=== PATIENT | female | born 1980 | race Caucasian/White ===

== ENCOUNTER 2017-04-20 08:59 | Emergency (ER) | payer MEDICAID ==
[2017-04-20] MEDS ORDERED: GOLYTELY 4,000ML ORAL.SOL PO ONE (15:30)
== END 2017-04-20 10:55 ==
LOC: ED 08:59
DX: K59.00 Constipation, unspecified (principal)
CPT/HCPCS: 99282

== ENCOUNTER 2017-05-10 02:06 | Emergency (ER) | payer MEDICAID ==
[~2017-05-10] VITALS: Ht 170.2 cm; Wt 82.2 kg
[2017-05-10 02:09] VITALS: BP 115/81
[2017-05-10 03:54] LABS: BLOOD UREA NITROGEN 5 mg/dL (7-18)
[2017-05-10] MEDS ORDERED: POTASSIUM CHLORIDE 20 MEQ TAB.ER.PRT ONE ×2 (04:21→04:29)
[2017-05-10] MEDS ORDERED: ONDANSETRON 2MG/ML, 2ML IVPush ONE (04:30)
[2017-05-10] MEDS ORDERED: SODIUM CHLORIDE 0.9% 1,000ML IVBOLUS ONE (04:30)
[2017-05-10] MEDS ORDERED: SODIUM CHLORIDE FLUSH 10ML SYR IVF ONE (04:30)
[2017-05-10] MEDS ORDERED: POTASSIUM CHLORIDE 20 MEQ TAB.ER.PRT PO ONE ×2 (04:30)
[2017-05-10] MEDS ORDERED: ONDANSETRON 2MG/ML, 2ML ONE (04:32)
== END 2017-05-10 05:21 | disposition home or self-care (01) ==
LOC: ED 03:18
DX: R30.0 Dysuria (principal); E87.6 Hypokalemia; E87.1 Hypo-osmolality and hyponatremia
CPT/HCPCS: 36415; 80048; 81001; 82040; 84703; 85025; 96361; 96374; 99284; J2405; J7030

== ENCOUNTER 2017-06-22 20:22 | Emergency (ER) | payer MEDICAID ==
[~2017-06-22] VITALS: Ht 170.2 cm; Wt 82.0 kg
[2017-06-22 21:01] LABS: HEMATOCRIT 38.1 % (34.6-47.8); HEMOGLOBIN 12.4 g/dL (11.7-16.4); WHITE BLOOD COUNT 10.5 x10^3/uL (3.4-10)
[2017-06-22 21:13] LABS: ASPARTATE AMINO TRANSFERASE 12 U/L (15-37); BLOOD UREA NITROGEN 9 mg/dL (7-18)
[2017-06-22 21:30] VITALS: BP 136/82
== END 2017-06-22 21:52 | disposition home or self-care (01) ==
LOC: ED 21:30
DX: R10.84 Generalized abdominal pain (principal); F17.200 Nicotine dependence, unspecified, uncomplicated
CPT/HCPCS: 36415; 74020; 80053; 83690; 84703; 85025; 99285

== ENCOUNTER 2017-08-21 09:56 | Emergency (ER) | payer MEDICAID ==
[~2017-08-21] VITALS: Ht 170.2 cm; Wt 80.1 kg
[2017-08-21] MEDS ORDERED: ACETAMINOPHEN 325 MG TABLET ONE (10:56)
[2017-08-21] MEDS ORDERED: ONDANSETRON 2MG/ML, 2ML ONE (10:57)
[2017-08-21] MEDS ORDERED: ACETAMINOPHEN 325 MG TABLET PO ONE (11:00)
[2017-08-21] MEDS ORDERED: ONDANSETRON 2MG/ML, 2ML IVPush ONE (11:00)
[2017-08-21] MEDS ORDERED: SODIUM CHLORIDE FLUSH 10ML SYR IVF ONE (11:00)
[2017-08-21] MEDS ORDERED: SODIUM CHLORIDE 0.9% 1,000ML IVBOLUS ONE (11:00)
[2017-08-21 11:14] LABS: HEMOGLOBIN 15.1 g/dL (11.7-16.4); WHITE BLOOD COUNT 12.5 x10^3/uL (3.4-10)
[2017-08-21 11:28] LABS: ASPARTATE AMINO TRANSFERASE 15 U/L (15-37); BLOOD UREA NITROGEN 7 mg/dL (7-18)
[2017-08-21 13:14] LABS: GLUCOSE, CSF 73 mg/dL (40-80)
[2017-08-21 13:29] VITALS: BP 114/78
== END 2017-08-21 14:00 | disposition home or self-care (01) ==
LOC: ED 11:23
DX: F51.02 Adjustment insomnia (principal); R51 Headache; G47.9 Sleep disorder, unspecified
CPT/HCPCS: 36415; 62270; 71010; 80053; 81003; 82140; 82945; 83605; 83690; 84157; 85025; 85610; 87070; 87205; 87252; 89051; 93005; 96361; 96374; 99285; J2405; J7030

== ENCOUNTER 2017-08-30 10:00 | Observation (INO) | payer MEDICAID ==
[~2017-08-30] VITALS: Ht 175.3 cm; Wt 75.0 kg
[2017-08-30] MEDS ORDERED: LORazepam 1MG TABLET PO ONE (10:30)
[2017-08-30 10:46] LABS: HEMATOCRIT 41.9 % (34.6-47.8); HEMOGLOBIN 13.9 g/dL (11.7-16.4); WHITE BLOOD COUNT 13.3 x10^3/uL (3.4-10)
[2017-08-30 10:54] LABS: ASPARTATE AMINO TRANSFERASE 14 U/L (15-37); BLOOD UREA NITROGEN 9 mg/dL (7-18)
[2017-08-30 10:55] LABS: DAU SCREEN DISCLAIMER
[2017-08-30 11:01] LABS: ACETAMINOPHEN < 2 mcg/mL (10-30)
[2017-08-30] MEDS ORDERED: NICOTINE 21 MG/24 HR PATCH.TD24 TD ONE (12:30)
[2017-08-30] MEDS ORDERED: ONDANSETRON ODT 4 MG PO PRN (12:30)
[2017-08-30] MEDS ORDERED: ACETAMINOPHEN 325 MG TABLET PO PRN (12:30)
[2017-08-30] MEDS ORDERED: DOCUSATE 100 MG CAPSULE PO PRN (12:30)
[2017-08-30] MEDS ORDERED: ENOXAPARIN 40 MG/0.4 ML ONE (13:43)
[2017-08-30] MEDS ORDERED: LORazepam 1MG TABLET ONE (13:43)
[2017-08-30] MEDS ORDERED: NICOTINE 21 MG/24 HR PATCH.TD24 ONE (13:43)
[2017-08-30] MEDS: ENOXAPARIN 40 MG/0.4 ML SQ SCH (14:25)
[2017-08-30 17:58] LABS: PATH.CAST-FLAG NOT PRESENT; SPERM-FLAG NOT PRESENT; SRC-FLAG NOT PRESENT; XTAL-FLAG NOT PRESENT; YLC-FLAG NOT PRESENT
[2017-08-30] MEDS: TEMAZEPAM 15 MG CAPSULE PO PRN (22:24)
[2017-08-30] MEDS: SODIUM CHLORIDE NASAL SPRAY 45ML BOTTLE NAS SCH (22:24)
[2017-08-31] MEDS ORDERED: LORazepam 0.5MG TABLET ONE (05:21)
[2017-08-31] MEDS: LORazepam 1MG TABLET PO PRN ×2 (05:30→12:08)
[2017-08-31 05:56] LABS: HEMATOCRIT 40.7 % (34.6-47.8); HEMOGLOBIN 13.4 g/dL (11.7-16.4); WHITE BLOOD COUNT 7.9 x10^3/uL (3.4-10)
[2017-08-31] MEDS: SODIUM CHLORIDE NASAL SPRAY 45ML BOTTLE NAS SCH ×2 (08:57→22:04)
[2017-08-31] MEDS ORDERED: LORazepam 1MG TABLET ONE (12:06)
[2017-08-31] MEDS ORDERED: ENOXAPARIN 40 MG/0.4 ML ONE (12:06)
[2017-08-31] MEDS: ENOXAPARIN 40 MG/0.4 ML SQ SCH (12:08)
[2017-08-31] MEDS: LURASIDONE 20 MG TABLET PO SCH (17:37)
[2017-08-31] MEDS ORDERED: NICOTINE 21 MG/24 HR PATCH.TD24 ONE (19:21)
[2017-08-31] MEDS: NICOTINE 21 MG/24 HR PATCH.TD24 TD SCH (19:26)
[2017-08-31] MEDS: TEMAZEPAM 15 MG CAPSULE PO PRN (22:39)
[2017-09-01 01:25] VITALS: BP 103/70
[2017-09-01] MEDS: LORazepam 1MG TABLET PO PRN ×4 (01:52→20:51)
[2017-09-01 07:58] VITALS: BP_SYST 92; BP_SYST 94; BP_DIAS 66; BP_DIAS 68
[2017-09-01] MEDS: LURASIDONE 20 MG TABLET PO SCH ×2 (08:06→16:39)
[2017-09-01] MEDS: SODIUM CHLORIDE NASAL SPRAY 45ML BOTTLE NAS SCH ×2 (09:00→10:08)
[2017-09-01 09:20] VITALS: BP 107/75
[2017-09-01] MEDS: LACTOBACILLUS CHEW TABLET PO SCH ×3 (10:09→20:28)
[2017-09-01] MEDS: ENOXAPARIN 40 MG/0.4 ML SQ SCH (13:06)
[2017-09-01] MEDS: NICOTINE 21 MG/24 HR PATCH.TD24 TD SCH (19:30)
[2017-09-01 19:52] VITALS: BP 96/65
[2017-09-02] MEDS: LORazepam 1MG TABLET PO PRN ×3 (00:08→16:10)
[2017-09-02] MEDS: LACTOBACILLUS CHEW TABLET PO SCH ×3 (05:23→16:10)
[2017-09-02 08:00] VITALS: BP 93/66
[2017-09-02] MEDS: LURASIDONE 20 MG TABLET PO SCH ×2 (08:25→17:12)
[2017-09-02] MEDS: SODIUM CHLORIDE NASAL SPRAY 45ML BOTTLE NAS SCH (08:25)
[2017-09-02] MEDS: ENOXAPARIN 40 MG/0.4 ML SQ SCH (13:12)
[2017-09-02] MEDS ORDERED: LURA20TA PO (18:34)
[2017-09-02] MEDS ORDERED: CLON-364 PO (18:34)
[2017-09-02] MEDS ORDERED: NICO-487 TD (18:34)
== END 2017-09-02 18:43 | disposition home or self-care (01) ==
LOC: ED 10:09 → EDIP 11:40 → 3E 09-01 01:22
PROVIDERS: ADMIT Internal Medicine; ATTEND Internal Medicine
DX: F31.81 Bipolar II disorder (principal); R45.851 Suicidal ideations; D72.829 Elevated white blood cell count, unspecified; D49.0 Neoplasm of unspecified behavior of digestive system; F17.210 Nicotine dependence, cigarettes, uncomplicated; G47.00 Insomnia, unspecified; F41.0 Panic disorder [episodic paroxysmal anxiety]; F29 Unspecified psychosis not due to a substance or known physiological condition; Z81.8 Family history of other mental and behavioral disorders; Z86.59 Personal history of other mental and behavioral disorders; Z91.5 Personal history of self-harm
CPT/HCPCS: 36415; 70210; 74000; 80053; 80307; 80329; 81001; 84703; 85025; 96372; 99285; G0378; J1650; G0479; G0480

== ENCOUNTER 2018-03-16 13:24 | Emergency (ER) | payer MEDICAID ==
[~2018-03-16] VITALS: Ht 170.2 cm; Wt 77.5 kg
[~2018-03-16 13:24] MED LIST: CLON-364 PO; LURA20TA PO; NICO-487 TD
[2018-03-16 13:35] VITALS: BP 116/73
[2018-03-16] MEDS ORDERED: DOXE50CA PO (14:05)
[2018-03-16 14:30] LABS: AMPHETAMINE SCREEN, URINE Negative (Negative); BARBITURATE SCREEN, URINE Negative (Negative); BENZODIAZEPINE SCREEN, URINE Negative (Negative); CANNABINOID SCREEN, URINE Negative (Negative); COCAINE SCREEN, URINE Negative (Negative); METHADONE SCREEN, URINE Negative (Negative); OPIATE SCREEN, URINE Negative (Negative)
== END 2018-03-16 16:35 | disposition home or self-care (01) ==
LOC: ED 15:22
DX: F32.9 Major depressive disorder, single episode, unspecified (principal); F41.1 Generalized anxiety disorder; F17.200 Nicotine dependence, unspecified, uncomplicated; Z79.899 Other long term (current) drug therapy
CPT/HCPCS: 80307; 99284

== ENCOUNTER 2018-10-12 05:41 | Emergency (ER) | payer MEDICAID ==
[~2018-10-12] VITALS: Ht 170.2 cm; Wt 100.0 kg
[~2018-10-12 05:41] MED LIST changes: -CLON-364 PO; +CLON0.5T11 PO; +DOXE50CA PO
[2018-10-12] MEDS ORDERED: PREN-1 PO (05:56)
[2018-10-12] MEDS ORDERED: ASPI-496 PO (05:56)
[2018-10-12] MEDS ORDERED: OTC ALLERGY MED (05:56)
[2018-10-12] MEDS ORDERED: HYDROmorphone 2 MG/ML, 1ML ONE ×2 (07:00→07:57)
[2018-10-12] MEDS: HYDROmorphone 1 MG/ML, 1ML IM PRN ×2 (07:02→07:59)
[2018-10-12] MEDS ORDERED: HYDROmorphone 1 MG/ML, 1ML IM PRN (08:00)
[2018-10-12 08:17] LABS: ALBUMIN 2.8 g/dL (3.4-5.0); ANION GAP 8 mmol/L (5-15); CALCIUM 8.7 mg/dL (8.5-10.1); CHLORIDE 108 mmol/L (98-107); CREATININE 0.66 mg/dL (0.55-1.02)
[2018-10-12 08:18] LABS: BASOPHILS # (AUTO) 0.03 x10^3/uL (0-0.1); BASOPHILS % (AUTO) 0 % (0-1); EOSINOPHILS # (AUTO) 0.01 x10^3/uL (0-0.4); EOSINOPHILS % (AUTO) 0 % (1-7); LYMPHOCYTES # (AUTO) 2.03 x10^3/uL (1-3.4); LYMPHOCYTES % (AUTO) 12 % (22-44); MD NO; MEAN CORPUSCULAR HEMOGLOBIN 28.7 pg (27.0-34.8); MEAN CORPUSCULAR HGB CONC 32.4 g/dL (32.4-35.8); MEAN CORPUSCULAR VOLUME 88.7 fL (80-100); MEAN PLATELET VOLUME 7.7 fL (7.4-10.4); MONOCYTES % (AUTO) 4 % (2-9); NEUTROPHILS % (AUTO) 84 % (42-75); PLATELET COUNT 411 x10^3/uL (130-400); RED BLOOD COUNT 3.73 x10^6/uL (3.82-5.3); RED CELL DISTRIBUTION WIDTH 13.1 % (9.6-15.2)
[2018-10-12 08:36] LABS: MICROSCOPIC NOT IND
[2018-10-12 08:40] LABS: CULTURE INDICATED? NO
[2018-10-12] MEDS ORDERED: OMNIPAQUE 350 MG/ML, 100ML BOTTLE ONE (10:48)
[2018-10-12 10:53] VITALS: BP 105/64
== END 2018-10-12 11:22 | disposition home or self-care (01) ==
LOC: ED 08:52
DX: O99.512 Diseases of the respiratory system complicating pregnancy, second trimester (principal); O99.332 Smoking (tobacco) complicating pregnancy, second trimester; J15.9 Unspecified bacterial pneumonia; D72.829 Elevated white blood cell count, unspecified; F17.200 Nicotine dependence, unspecified, uncomplicated; R07.9 Chest pain, unspecified; F41.1 Generalized anxiety disorder; F32.9 Major depressive disorder, single episode, unspecified; Z87.19 Personal history of other diseases of the digestive system; Z3A.24 24 weeks gestation of pregnancy
CPT/HCPCS: 36415; 71046; 71275; 80048; 81003; 82040; 85025; 85379; 96372; 99284; J1170; Q9967

== ENCOUNTER 2018-11-14 15:17 | Outpatient (CLI) | payer MEDICAID ==
[~2018-11-14] VITALS: Ht 170.2 cm; Wt 99.8 kg
[~2018-11-14 15:17] MED LIST changes: +ACET-76 PO; +ASPI-496 PO; +DIPH25CA61 PO; +OTC ALLERGY MED; +PREN-1 PO; +RANI150T23 PO
[2018-11-14 16:12] LABS: MICROSCOPIC NOT IND
== END 2018-11-14 17:45 | disposition home or self-care (01) ==
LOC: LDOP 15:17
PROVIDERS: ATTEND Obstetrics & Gynecology
DX: O26.893 Other specified pregnancy related conditions, third trimester (principal); R10.9 Unspecified abdominal pain; F17.210 Nicotine dependence, cigarettes, uncomplicated; Z3A.20 20 weeks gestation of pregnancy
CPT/HCPCS: 59025; 81003; 87086; 99201; G0463

== ENCOUNTER 2018-11-14 17:54 | Emergency (ER) | payer MEDICAID ==
[~2018-11-14] VITALS: Ht 170.2 cm; Wt 100.0 kg
[2018-11-14 19:16] VITALS: BP 125/72
--- NOTE | 2018-11-14 19:16 | NUR ---
PT HERE FOR LEFT SIDED PAIN. PT SEEN HERE 3 TIMES FOR SAME. PT 27 WEEKS . PT HAS NO OTHER COMPLAINTS. VSS. PT WANTS TO FIND OUT WHAT IS GOING ON. PA AT BEDSIDE
[2018-11-14 19:29] LABS: BASOPHILS # (AUTO) 0.01 x10^3/uL (0-0.1); BASOPHILS % (AUTO) 0 % (0-1); EOSINOPHILS # (AUTO) 0.09 x10^3/uL (0-0.4); EOSINOPHILS % (AUTO) 1 % (1-7); LYMPHOCYTES # (AUTO) 2.18 x10^3/uL (1-3.4); LYMPHOCYTES % (AUTO) 18 % (22-44); MD NO; MEAN CORPUSCULAR HEMOGLOBIN 28.9 pg (27.0-34.8); MEAN CORPUSCULAR HGB CONC 33.1 g/dL (32.4-35.8); MEAN CORPUSCULAR VOLUME 87.3 fL (80-100); MEAN PLATELET VOLUME 7.4 fL (7.4-10.4); MONOCYTES % (AUTO) 4 % (2-9); NEUTROPHILS # (AUTO) 9.62 x10^3/uL (1.8-6.8); NEUTROPHILS % (AUTO) 78 % (42-75); PLATELET COUNT 373 x10^3/uL (130-400); RED CELL DISTRIBUTION WIDTH 13.6 % (9.6-15.2)
--- NOTE | 2018-11-14 19:38 | NUR ---
REPORT TO RAFAL NOLAN
[2018-11-14 19:40] LABS: ALANINE AMINOTRANSFERASE 20 U/L (12-78); ALBUMIN 2.4 g/dL (3.4-5.0); ANION GAP 11 mmol/L (5-15); CALCIUM 7.9 mg/dL (8.5-10.1); CHLORIDE 106 mmol/L (98-107); CREATININE 0.63 mg/dL (0.55-1.02)
[2018-11-14 19:42] LABS: ALKALINE PHOSPHATASE 115 U/L (45-117); BILIRUBIN,TOTAL 0.2 mg/dL (0.2-1.0); TOTAL PROTEIN 6.4 g/dL (6.4-8.2)
[2018-11-14 21:12] LABS: MICROSCOPIC INDICATED
[2018-11-14 21:23] LABS: CULTURE INDICATED? YES
== END 2018-11-14 21:42 | disposition home or self-care (01) ==
LOC: ED 19:42
DX: O26.893 Other specified pregnancy related conditions, third trimester (principal); Z3A.29 29 weeks gestation of pregnancy; G89.29 Other chronic pain; R10.9 Unspecified abdominal pain; R11.0 Nausea
CPT/HCPCS: 36415; 71046; 80053; 81001; 85025; 87086; 93005; 99284

== ENCOUNTER 2018-11-27 19:59 | Outpatient (CLI) | payer MEDICAID ==
[~2018-11-27] VITALS: Ht 170.2 cm; Wt 112.5 kg
[2018-11-27 20:35] LABS: MICROSCOPIC NOT IND
[2018-11-27 20:47] LABS: AMPHETAMINE SCREEN, URINE Negative (Negative); BARBITURATE SCREEN, URINE Negative (Negative); BENZODIAZEPINE SCREEN, URINE Negative (Negative); CANNABINOID SCREEN, URINE Positive (Negative); COCAINE SCREEN, URINE Negative (Negative); OPIATE SCREEN, URINE Negative (Negative)
[2018-11-27 20:48] LABS: METHADONE SCREEN, URINE Negative (Negative)
[2018-11-27 21:52] VITALS: BP 117/77
[2018-11-27 22:01] LABS: BASOPHILS # (AUTO) 0.05 x10^3/uL (0-0.1); BASOPHILS % (AUTO) 0 % (0-1); EOSINOPHILS # (AUTO) 0.45 x10^3/uL (0-0.4); EOSINOPHILS % (AUTO) 3 % (1-7); LYMPHOCYTES % (AUTO) 14 % (22-44); MD NO; MEAN CORPUSCULAR HEMOGLOBIN 28.6 pg (27.0-34.8); MEAN CORPUSCULAR HGB CONC 32.9 g/dL (32.4-35.8); MEAN CORPUSCULAR VOLUME 86.8 fL (80-100); MEAN PLATELET VOLUME 7.7 fL (7.4-10.4); MONOCYTES % (AUTO) 4 % (2-9); NEUTROPHILS # (AUTO) 12.67 x10^3/uL (1.8-6.8); NEUTROPHILS % (AUTO) 78 % (42-75); PLATELET COUNT 412 x10^3/uL (130-400); RED BLOOD COUNT 3.68 x10^6/uL (3.82-5.3)
[2018-11-27 22:11] LABS: ALBUMIN 2.4 g/dL (3.4-5.0); ANION GAP 8 mmol/L (5-15); CALCIUM 7.8 mg/dL (8.5-10.1); CHLORIDE 108 mmol/L (98-107)
[2018-11-27 22:14] LABS: ALANINE AMINOTRANSFERASE 21 U/L (12-78); ALKALINE PHOSPHATASE 126 U/L (45-117); BILIRUBIN,TOTAL 0.6 mg/dL (0.2-1.0); CREATININE 0.65 mg/dL (0.55-1.02); TOTAL PROTEIN 6.5 g/dL (6.4-8.2)
[2018-11-27] MEDS ORDERED: MAALOX/HYOSCYAMINE/LIDOCAINE 45 ML BTL PO ONE (23:00)
== END 2018-11-27 23:50 | disposition home or self-care (01) ==
LOC: LDOP 19:59
PROVIDERS: ATTEND Obstetrics & Gynecology
DX: O26.893 Other specified pregnancy related conditions, third trimester (principal); Z3A.30 30 weeks gestation of pregnancy; R10.9 Unspecified abdominal pain
CPT/HCPCS: 36415; 59025; 76700; 80053; 80307; 81003; 85025; 87086; 99211; G0463

== ENCOUNTER 2018-12-02 06:41 | Observation (INO) | payer MEDICAID ==
[~2018-12-02] VITALS: Ht 170.2 cm; Wt 102.0 kg
--- NOTE | 2018-12-02 07:03 | NUR ---
Patient up to bathroom, UA collected and sent to lab, elevator service technician Ishan has collected/bagged/labeled patient's belongings.
--- NOTE | 2018-12-02 07:10 | NUR ---
MD Stafford at bedside now for assessment, water and blankets provided, sitter outside room, POC discussed with .
[2018-12-02 07:36] LABS: BASOPHILS # (AUTO) 0.11 x10^3/uL (0-0.1); BASOPHILS % (AUTO) 1 % (0-1); EOSINOPHILS # (AUTO) 0.06 x10^3/uL (0-0.4); EOSINOPHILS % (AUTO) 0 % (1-7); LYMPHOCYTES # (AUTO) 1.86 x10^3/uL (1-3.4); LYMPHOCYTES % (AUTO) 11 % (22-44); MD NO; MEAN CORPUSCULAR HGB CONC 32.8 g/dL (32.4-35.8); MEAN CORPUSCULAR VOLUME 85.3 fL (80-100); MEAN PLATELET VOLUME 7.5 fL (7.4-10.4); MONOCYTES # (AUTO) 0.71 x10^3/uL (0.2-0.8); MONOCYTES % (AUTO) 4 % (2-9); NEUTROPHILS # (AUTO) 13.57 x10^3/uL (1.8-6.8); NEUTROPHILS % (AUTO) 83 % (42-75); PLATELET COUNT 412 x10^3/uL (130-400); RED BLOOD COUNT 3.75 x10^6/uL (3.82-5.3); RED CELL DISTRIBUTION WIDTH 14.1 % (9.6-15.2)
[2018-12-02 07:45] LABS: ALANINE AMINOTRANSFERASE 20 U/L (12-78); ALBUMIN 2.4 g/dL (3.4-5.0); ANION GAP 8 mmol/L (5-15); CALCIUM 8.1 mg/dL (8.5-10.1); CHLORIDE 109 mmol/L (98-107); CREATININE 0.53 mg/dL (0.55-1.02); SALICYLATE LEVEL 1.9 mg/dL (2.8-20.0)
[2018-12-02 07:48] LABS: ALKALINE PHOSPHATASE 131 U/L (45-117); BILIRUBIN,TOTAL 0.2 mg/dL (0.2-1.0); TOTAL PROTEIN 6.5 g/dL (6.4-8.2)
[2018-12-02 07:49] LABS: MICROSCOPIC NOT IND
[2018-12-02 07:52] LABS: CULTURE INDICATED? NO
[2018-12-02 07:54] LABS: ACETAMINOPHEN < 2 mcg/mL (10-30)
[2018-12-02 08:02] LABS: AMPHETAMINE SCREEN, URINE Negative (Negative); BARBITURATE SCREEN, URINE Negative (Negative); BENZODIAZEPINE SCREEN, URINE Negative (Negative); CANNABINOID SCREEN, URINE Negative (Negative); COCAINE SCREEN, URINE Negative (Negative); METHADONE SCREEN, URINE Negative (Negative); OPIATE SCREEN, URINE Negative (Negative)
--- NOTE | 2018-12-02 08:35 | NUR ---
patient given atarax, she has requested to take just 25 mg, this RN will recheck soon to offer 2nd 25 mg tablet
--- NOTE | 2018-12-02 09:17 | NUR ---
SOC MD Campbell has called and updates provided by this RN. Tele psych unit in room, shutters lowered, safety maintained, sitter remains present outside room.
--- NOTE | 2018-12-02 09:51 | NUR ---
MD Campbell has called to update that patient should be on a legal hold and can have Ativan PRN per his reccomendation. Following the Telepsych consult patient was sitting up in bed gagging but not seen to vomit by this RN. Patient has been given multiple cups of water, is reporting "severe dehydration for months" MD Stafford updated now.
[2018-12-02] MEDS ORDERED: ONDANSETRON ODT 4 MG ONE (10:08)
--- NOTE | 2018-12-02 10:29 | NUR ---
telephone operator receptionist note: L&D called to perform heart tones per order.
[2018-12-02] MEDS ORDERED: ONDANSETRON ODT 4 MG PO ONE (10:30)
--- NOTE | 2018-12-02 10:44 | NUR ---
patient remains safe in room, sitter present with line of sight, zofran administered following verbal order from MD Stafford, patient will be given more PO fluids when nausea has subsided.
--- NOTE | 2018-12-02 10:44 | NUR ---
FHTS BY DOPPLER 132
[2018-12-02] MEDS ORDERED: TEMPLATE NON-FORMULARY MED. (Ranitidine Hcl** (Zantac**) 150 MG) HOMEMEDPO PRN (12:00)
[2018-12-02] MEDS: ONDANSETRON ODT 4 MG PO PRN (13:20)
[2018-12-02] MEDS: ACETAMINOPHEN 325 MG TABLET PO PRN (18:11)
[2018-12-02 19:59] VITALS: BP 121/81
[2018-12-02] MEDS: DIPHENHYDRAMINE 25 MG CAPSULE PO PRN (20:32)
[2018-12-02] MEDS: RANITIDINE 15 MG/ML ORAL SOL PO PRN (22:19)
[2018-12-03] MEDS: ONDANSETRON ODT 4 MG PO PRN (01:03)
[2018-12-03 05:22] LABS: BASOPHILS # (AUTO) 0.03 x10^3/uL (0-0.1); BASOPHILS % (AUTO) 0 % (0-1); EOSINOPHILS # (AUTO) 0.07 x10^3/uL (0-0.4); EOSINOPHILS % (AUTO) 0 % (1-7); LYMPHOCYTES # (AUTO) 2.19 x10^3/uL (1-3.4); LYMPHOCYTES % (AUTO) 14 % (22-44); MD NO; MEAN CORPUSCULAR HEMOGLOBIN 28.3 pg (27.0-34.8); MEAN CORPUSCULAR HGB CONC 32.5 g/dL (32.4-35.8); MEAN CORPUSCULAR VOLUME 86.9 fL (80-100); MEAN PLATELET VOLUME 7.7 fL (7.4-10.4); MONOCYTES # (AUTO) 0.82 x10^3/uL (0.2-0.8); MONOCYTES % (AUTO) 5 % (2-9); NEUTROPHILS # (AUTO) 12.97 x10^3/uL (1.8-6.8); NEUTROPHILS % (AUTO) 81 % (42-75); PLATELET COUNT 386 x10^3/uL (130-400); RED BLOOD COUNT 3.72 x10^6/uL (3.82-5.3); RED CELL DISTRIBUTION WIDTH 14.1 % (9.6-15.2)
[2018-12-03] MEDS: SUCRALFATE 1 GM TABLET PO SCH ×4 (07:54→20:38)
[2018-12-03] MEDS: PRENATAL VIT/IRON/FA 1 EACH TABLET PO SCH (07:54)
[2018-12-03 08:00] VITALS: BP 100/69
[2018-12-03 13:01] VITALS: BP 131/80
[2018-12-03] MEDS: RANITIDINE 15 MG/ML ORAL SOL PO PRN (15:17)
[2018-12-03] MEDS: DIPHENHYDRAMINE 25 MG CAPSULE PO PRN (20:30)
[2018-12-03 20:38] VITALS: BP 107/64
[2018-12-04 01:49] VITALS: BP 128/91
[2018-12-04] MEDS: RANITIDINE 15 MG/ML ORAL SOL PO PRN (01:49)
[2018-12-04] MEDS: ACETAMINOPHEN 325 MG TABLET PO PRN (03:02)
[2018-12-04 08:21] VITALS: BP 108/71
[2018-12-04] MEDS: PRENATAL VIT/IRON/FA 1 EACH TABLET PO SCH (08:47)
[2018-12-04] MEDS: SUCRALFATE 1 GM TABLET PO SCH ×2 (08:47→09:00)
== END 2018-12-04 14:55 ==
LOC: ED 06:46 → EDIP 10:19 → 2N 12:25
PROVIDERS: ADMIT Internal Medicine; ATTEND Internal Medicine
DX: O99.343 Other mental disorders complicating pregnancy, third trimester (principal); R45.851 Suicidal ideations; F32.9 Major depressive disorder, single episode, unspecified; F41.0 Panic disorder [episodic paroxysmal anxiety]; O99.323 Drug use complicating pregnancy, third trimester; F12.90 Cannabis use, unspecified, uncomplicated; O99.013 Anemia complicating pregnancy, third trimester; O26.893 Other specified pregnancy related conditions, third trimester; D72.829 Elevated white blood cell count, unspecified; E44.1 Mild protein-calorie malnutrition; O99.333 Smoking (tobacco) complicating pregnancy, third trimester; O25.13 Malnutrition in pregnancy, third trimester; Z3A.31 31 weeks gestation of pregnancy
CPT/HCPCS: 36415; 59025; 71045; 80053; 80307; 80329; 81003; 82731; 84112; 84443; 85025; 93005; 99284; G0378; Q0162; Q0163; Q0177; G0480

== ENCOUNTER 2018-12-04 13:57 | Inpatient (IN) | payer MEDICAID ==
[~2018-12-04] VITALS: Ht 170.2 cm; Wt 102.4 kg
[2018-12-04] MEDS ORDERED: POLYETHYLENE GLYCOL 17 GM PACKET PO PRN (15:30)
[2018-12-04] MEDS ORDERED: PLEASE ENTER HEIGHT AND WEIGHT MC SCH (15:30)
[2018-12-04] MEDS ORDERED: DOCUSATE 100 MG CAPSULE PO PRN (15:30)
[2018-12-04 16:14] VITALS: BP 115/73
[2018-12-04 20:26] VITALS: BP 100/55
[2018-12-04] MEDS ORDERED: ACETAMINOPHEN 325 MG TABLET ONE (20:39)
[2018-12-04] MEDS: ACETAMINOPHEN 325 MG TABLET PO PRN (20:43)
[2018-12-04] MEDS: ALUMINUM/MAG/SIMETHICONE 30 ML UDC PO PRN (22:04)
[2018-12-05 06:18] LABS: BASOPHILS # (AUTO) 0.03 x10^3/uL (0-0.1); BASOPHILS % (AUTO) 0 % (0-1); EOSINOPHILS # (AUTO) 0.09 x10^3/uL (0-0.4); EOSINOPHILS % (AUTO) 1 % (1-7); LYMPHOCYTES # (AUTO) 1.98 x10^3/uL (1-3.4); LYMPHOCYTES % (AUTO) 18 % (22-44); MD NO; MEAN CORPUSCULAR HEMOGLOBIN 27.9 pg (27.0-34.8); MEAN CORPUSCULAR HGB CONC 32.6 g/dL (32.4-35.8); MEAN CORPUSCULAR VOLUME 85.7 fL (80-100); MEAN PLATELET VOLUME 7.8 fL (7.4-10.4); MONOCYTES # (AUTO) 0.61 x10^3/uL (0.2-0.8); MONOCYTES % (AUTO) 6 % (2-9); NEUTROPHILS % (AUTO) 75 % (42-75); PLATELET COUNT 328 x10^3/uL (130-400); RED BLOOD COUNT 3.72 x10^6/uL (3.82-5.3); RED CELL DISTRIBUTION WIDTH 14.1 % (9.6-15.2)
[2018-12-05 06:24] LABS: ANION GAP 9 mmol/L (5-15); CALCIUM 8.3 mg/dL (8.5-10.1); CHLORIDE 107 mmol/L (98-107)
[2018-12-05 06:43] LABS: CHOL/HDL RATIO 3.2; CHOLESTEROL, TOTAL 172 mg/dL (140-239); CREATININE 0.54 mg/dL (0.55-1.02); FREE T4 (FREE THYROXINE) 1.06 ng/dL (0.76-1.46); HDL CHOL % 31 % (28-40); HDL CHOLESTEROL (DIRECT) 54 mg/dL (40-60); LDL CHOLESTEROL,CALCULATED 86 mg/dL (54-169); LDL/HDL RATIO 1.6 (0.5-3.0); TRIGLYCERIDES 160 mg/dL (50-200); VLDL CHOLESTEROL 32 mg/dL (0-25)
[2018-12-05 06:44] LABS: FOLATE LEVEL > 20.0 ng/mL (3.1-17.5)
[2018-12-05 07:51] VITALS: BP 106/72
[2018-12-05] MEDS: ALUMINUM/MAG/SIMETHICONE 30 ML UDC PO PRN (12:53)
[2018-12-05 14:55] LABS: MICROSCOPIC NOT IND
[2018-12-05 14:57] LABS: CULTURE INDICATED? NO
[2018-12-05] MEDS ORDERED: PRENATAL VIT/IRON/FA 1 EACH TABLET PO ONE (15:06)
[2018-12-05] MEDS: DIPHENHYDRAMINE 25 MG CAPSULE PO PRN (19:59)
[2018-12-05] MEDS: ACETAMINOPHEN 325 MG TABLET PO PRN (19:59)
[2018-12-05 20:00] VITALS: BP 121/84
[2018-12-06] MEDS: DIPHENHYDRAMINE 25 MG CAPSULE PO PRN ×3 (01:16→20:44)
[2018-12-06 08:10] VITALS: BP 108/74
[2018-12-06] MEDS: ACETAMINOPHEN 325 MG TABLET PO PRN ×2 (09:14→20:07)
[2018-12-06] MEDS: ALUMINUM/MAG/SIMETHICONE 30 ML UDC PO PRN ×2 (13:03→22:40)
[2018-12-06 19:55] VITALS: BP 128/90
[2018-12-06 23:06] VITALS: BP 128/86
[2018-12-07] MEDS: ACETAMINOPHEN 325 MG TABLET PO PRN ×4 (02:19→16:14)
[2018-12-07 07:58] VITALS: BP 128/85
[2018-12-07 19:48] VITALS: BP 120/82
[2018-12-07] MEDS: DIPHENHYDRAMINE 25 MG CAPSULE PO PRN (20:02)
[2018-12-07] MEDS: ALUMINUM/MAG/SIMETHICONE 30 ML UDC PO PRN (22:12)
[2018-12-08 08:00] VITALS: BP 96/66
[2018-12-08] MEDS ORDERED: PRENATAL VIT/IRON/FA 1 EACH TABLET PO SCH (09:00)
[2018-12-08] MEDS: SERTRALINE 50MG TABLET PO SCH ×2 (09:00→09:02)
== END 2018-12-08 09:58 | disposition home or self-care (01) | DRG 832 ==
LOC: 3E 14:46
PROVIDERS: ADMIT Psychiatry & Neurology Psychosomatic Medicine; ATTEND Psychiatry & Neurology Psychosomatic Medicine
DX: O99.343 Other mental disorders complicating pregnancy, third trimester (principal); E44.1 Mild protein-calorie malnutrition; O99.113 Other diseases of the blood and blood-forming organs and certain disorders involving the immune mechanism complicating pregnancy, third trimester; F50.2 Bulimia nervosa; K22.70 Barrett's esophagus without dysplasia; O25.13 Malnutrition in pregnancy, third trimester; O99.013 Anemia complicating pregnancy, third trimester; O26.893 Other specified pregnancy related conditions, third trimester; K21.9 Gastro-esophageal reflux disease without esophagitis; O99.333 Smoking (tobacco) complicating pregnancy, third trimester; F99 Mental disorder, not otherwise specified; O99.613 Diseases of the digestive system complicating pregnancy, third trimester; Z3A.32 32 weeks gestation of pregnancy; Z86.59 Personal history of other mental and behavioral disorders; Z91.5 Personal history of self-harm; Z68.35 Body mass index [BMI] 35.0-35.9, adult
CPT/HCPCS: 36415; 80048; 80061; 81003; 82746; 84439; 84443; 85025; 86592; Q0163; Q0177

== ENCOUNTER 2018-12-20 08:26 | Outpatient (CLI) | payer MEDICAID ==
[~2018-12-20] VITALS: Ht 170.2 cm; Wt 104.5 kg
[~2018-12-20 08:26] MED LIST changes: +NITR100C56 PO; +ONDA4TAB7 PO
[2018-12-20 09:15] LABS: MICROSCOPIC NOT IND
[2018-12-20] MEDS ORDERED: ONDANSETRON ODT 8 MG ONE (09:24)
[2018-12-20 09:26] LABS: AMPHETAMINE SCREEN, URINE Negative (Negative); BARBITURATE SCREEN, URINE Negative (Negative); BENZODIAZEPINE SCREEN, URINE Negative (Negative); CANNABINOID SCREEN, URINE Negative (Negative); COCAINE SCREEN, URINE Negative (Negative); METHADONE SCREEN, URINE Negative (Negative); OPIATE SCREEN, URINE Negative (Negative)
[2018-12-20] MEDS ORDERED: ONDANSETRON ODT 8 MG PO ONE (09:30)
[2018-12-20 09:37] VITALS: BP 118/75
[2018-12-20] MEDS ORDERED: PLEASE ENTER HEIGHT AND WEIGHT MC SCH (10:00)
== END 2018-12-20 10:40 | disposition home or self-care (01) ==
LOC: LDOP 08:26
PROVIDERS: ATTEND Obstetrics & Gynecology
DX: O21.2 Late vomiting of pregnancy (principal); Z3A.34 34 weeks gestation of pregnancy
CPT/HCPCS: 59025; 80307; 81003; 87086; 99211; Q0162; G0463

== ENCOUNTER 2018-12-29 13:07 | Outpatient (CLI) | payer MEDICAID ==
[~2018-12-29] VITALS: Ht 170.2 cm; Wt 109.5 kg
[2018-12-29 13:10] VITALS: BP 107/65
[2018-12-29 13:37] LABS: MICROSCOPIC NOT IND
[2018-12-29 13:41] LABS: CULTURE INDICATED? NO
[2018-12-29 13:48] LABS: AMPHETAMINE SCREEN, URINE Negative (Negative); BARBITURATE SCREEN, URINE Negative (Negative); BENZODIAZEPINE SCREEN, URINE Negative (Negative); CANNABINOID SCREEN, URINE Negative (Negative); COCAINE SCREEN, URINE Negative (Negative); METHADONE SCREEN, URINE Negative (Negative); OPIATE SCREEN, URINE Negative (Negative)
== END 2018-12-29 15:14 | disposition home or self-care (01) ==
LOC: LDOP 13:07
PROVIDERS: ATTEND Obstetrics & Gynecology
DX: O26.893 Other specified pregnancy related conditions, third trimester (principal); R10.9 Unspecified abdominal pain; Z3A.35 35 weeks gestation of pregnancy
CPT/HCPCS: 59025; 80307; 81003; 99211; G0463

== ENCOUNTER 2018-12-30 17:35 | Emergency (ER) | payer MEDICAID ==
[2018-12-30 17:47] VITALS: BP 118/79
--- NOTE | 2018-12-30 17:49 | NUR ---
PT EDUCATED REGARDING NEEDING TO GO TO L&D FIRST. PT WAS WALKING OUT OF TRIAGE THIS RN EXPLAINED THE SITUATION. PT STATES "I DON'T WANT TO GO THERE. MY BABY IS FINE. MOVING AND THE HEART IS FINE." PT CONTINUES TO WALK OUT OF TRIAGE AND ER.
== END 2018-12-30 17:51 | disposition left against medical advice (07) ==
LOC: ED 17:45
DX: Z53.21 Procedure and treatment not carried out due to patient leaving prior to being seen by health care provider (principal)

== ENCOUNTER 2019-01-08 15:04 | Observation (INO) | payer MEDICAID ==
[~2019-01-08] VITALS: Ht 170.2 cm; Wt 108.1 kg
[2019-01-08 15:10] VITALS: BP 111/78
[2019-01-08] MEDS ORDERED: MAALOX/HYOSCYAMINE/LIDOCAINE 45 ML BTL PO ONE (15:30)
[2019-01-08 15:48] LABS: AMPHETAMINE SCREEN, URINE Negative (Negative); BARBITURATE SCREEN, URINE Negative (Negative); BENZODIAZEPINE SCREEN, URINE Negative (Negative); CANNABINOID SCREEN, URINE Negative (Negative); COCAINE SCREEN, URINE Negative (Negative); METHADONE SCREEN, URINE Negative (Negative); OPIATE SCREEN, URINE Negative (Negative)
[2019-01-08] MEDS ORDERED: LACTATED RINGERS 1,000 ML IV SCH (16:00)
[2019-01-08] MEDS ORDERED: D5%-LACTATED RINGERS 1,000 ML IV SCH (16:00)
[2019-01-08] MEDS ORDERED: NYSTATIN TOPICAL POWDER 15GM TP PRN (16:00)
== END 2019-01-08 16:50 | disposition home or self-care (01) ==
LOC: LDOP 15:04 → LDIP 15:39
PROVIDERS: ADMIT Obstetrics & Gynecology; ATTEND Obstetrics & Gynecology
DX: O36.8130 Decreased fetal movements, third trimester, not applicable or unspecified (principal); O26.893 Other specified pregnancy related conditions, third trimester; O09.523 Supervision of elderly multigravida, third trimester; R42 Dizziness and giddiness; R06.02 Shortness of breath; Z3A.36 36 weeks gestation of pregnancy; Z87.891 Personal history of nicotine dependence; Z79.899 Other long term (current) drug therapy
CPT/HCPCS: 59025; 80307; 96360; G0378; J7121; 99211; G0463

== ENCOUNTER 2019-01-12 09:35 | Outpatient (CLI) | payer MEDICAID ==
[~2019-01-12] VITALS: Ht 170.2 cm; Wt 108.1 kg
[2019-01-12 10:30] VITALS: BP 121/69
[2019-01-12 10:40] LABS: MICROSCOPIC NOT IND
[2019-01-12 11:52] LABS: AMPHETAMINE SCREEN, URINE Negative (Negative); BARBITURATE SCREEN, URINE Negative (Negative); BENZODIAZEPINE SCREEN, URINE Negative (Negative); CANNABINOID SCREEN, URINE Negative (Negative); COCAINE SCREEN, URINE Negative (Negative); METHADONE SCREEN, URINE Negative (Negative); OPIATE SCREEN, URINE Negative (Negative)
== END 2019-01-12 10:51 | disposition home or self-care (01) ==
LOC: LDOP 09:35
PROVIDERS: ATTEND Obstetrics & Gynecology
DX: O36.8130 Decreased fetal movements, third trimester, not applicable or unspecified (principal); O21.2 Late vomiting of pregnancy; O26.893 Other specified pregnancy related conditions, third trimester; M54.5 Low back pain; Z3A.37 37 weeks gestation of pregnancy
CPT/HCPCS: 59025; 80307; 81003; 99211; G0463

== ENCOUNTER 2019-01-15 09:13 | Emergency (ER) | payer MEDICAID ==
[~2019-01-15] VITALS: Ht 170.2 cm; Wt 108.0 kg
--- NOTE | 2019-01-15 10:04 | NUR ---
P TO ED FOR SOB AND PÉREZ SINCE LAST NIGHT WITH INCREASING ABD PAIN. 37/5 . WILL NOTIFY L&D. CONNECTED TO MONITORS. TACHY, ALL OTHER VSS. PA TO BEDSIDE FOR ASSESSMENT. AWAITING ORDERS.
--- NOTE | 2019-01-15 10:29 | NUR ---
dr hernandez spoke with dr carr conductor sleeping car for dr palma
--- NOTE | 2019-01-15 10:41 | NUR ---
MD ASSESSMENT COMPLETE. IV ESTABLISHED. PT TO CT.
[2019-01-15 10:54] LABS: BASOPHILS # (AUTO) 0.13 x10^3/uL (0-0.1); BASOPHILS % (AUTO) 1 % (0-1); EOSINOPHILS # (AUTO) 0.16 x10^3/uL (0-0.4); EOSINOPHILS % (AUTO) 1 % (1-7); LYMPHOCYTES # (AUTO) 1.69 x10^3/uL (1-3.4); LYMPHOCYTES % (AUTO) 11 % (22-44); MD NO; MEAN CORPUSCULAR HEMOGLOBIN 27.8 pg (27.0-34.8); MEAN CORPUSCULAR HGB CONC 32.9 g/dL (32.4-35.8); MEAN CORPUSCULAR VOLUME 84.3 fL (80-100); MEAN PLATELET VOLUME 7.9 fL (7.4-10.4); MONOCYTES # (AUTO) 0.78 x10^3/uL (0.2-0.8); MONOCYTES % (AUTO) 5 % (2-9); NEUTROPHILS % (AUTO) 82 % (42-75); PLATELET COUNT 352 x10^3/uL (130-400); RED BLOOD COUNT 3.78 x10^6/uL (3.82-5.3); RED CELL DISTRIBUTION WIDTH 15.6 % (9.6-15.2)
[2019-01-15] MEDS ORDERED: OMNIPAQUE 350 MG/ML, 100ML BOTTLE ONE (10:59)
[2019-01-15 11:04] LABS: ALBUMIN 2.4 g/dL (3.4-5.0); ANION GAP 8 mmol/L (5-15); CALCIUM 8.3 mg/dL (8.5-10.1); CHLORIDE 111 mmol/L (98-107); CREATININE 0.61 mg/dL (0.55-1.02)
[2019-01-15 11:06] LABS: TROPONIN I < 0.015 ng/mL (0.000-0.045)
--- NOTE | 2019-01-15 11:22 | NUR ---
pt back from ct. awaiting results.
[2019-01-15 11:29] VITALS: BP 122/71
--- NOTE | 2019-01-15 11:49 | NUR ---
dr bertrand spoke with dr carr
--- NOTE | 2019-01-15 12:07 | NUR ---
report to l&d. pt ready for transport.
== END 2019-01-15 12:10 | disposition home or self-care (01) ==
LOC: ED 11:39 → UNDOADMOB 11:42 → INTOOBSV 11:42 → EDIP 11:42 → ED 12:10
DX: R06.00 Dyspnea, unspecified (principal)
CPT/HCPCS: 36415; 71275; 80048; 82040; 83880; 84484; 85025; 93005; 99284; Q9967

== ENCOUNTER 2019-01-15 13:11 | Outpatient (CLI) | payer MEDICAID ==
[~2019-01-15] VITALS: Ht 170.2 cm; Wt 114.5 kg
[2019-01-15 13:31] LABS: MICROSCOPIC INDICATED
[2019-01-15 13:49] LABS: AMPHETAMINE SCREEN, URINE Negative (Negative); BARBITURATE SCREEN, URINE Negative (Negative); BENZODIAZEPINE SCREEN, URINE Negative (Negative); CANNABINOID SCREEN, URINE Negative (Negative); COCAINE SCREEN, URINE Negative (Negative); METHADONE SCREEN, URINE Negative (Negative); OPIATE SCREEN, URINE Negative (Negative)
== END 2019-01-15 14:41 | disposition home or self-care (01) ==
LOC: LDOP 13:11
PROVIDERS: ATTEND Obstetrics & Gynecology
DX: O26.893 Other specified pregnancy related conditions, third trimester (principal); R10.9 Unspecified abdominal pain; Z3A.37 37 weeks gestation of pregnancy
CPT/HCPCS: 59025; 80307; 81001; 87086; 99211; G0463

== ENCOUNTER 2019-01-19 16:07 | Outpatient (CLI) | payer MEDICAID ==
[~2019-01-19] VITALS: Ht 170.2 cm; Wt 109.1 kg
[2019-01-19 17:10] LABS: MICROSCOPIC NOT IND
[2019-01-19 17:21] LABS: AMPHETAMINE SCREEN, URINE Negative (Negative); BARBITURATE SCREEN, URINE Negative (Negative); BENZODIAZEPINE SCREEN, URINE Negative (Negative); CANNABINOID SCREEN, URINE Negative (Negative); COCAINE SCREEN, URINE Negative (Negative); METHADONE SCREEN, URINE Negative (Negative); OPIATE SCREEN, URINE Negative (Negative)
[2019-01-19 17:49] VITALS: BP 113/60
== END 2019-01-19 18:02 | disposition left against medical advice (07) ==
LOC: LDOP 16:07
PROVIDERS: ATTEND Obstetrics & Gynecology
DX: O23.43 Unspecified infection of urinary tract in pregnancy, third trimester (principal); Z3A.38 38 weeks gestation of pregnancy
CPT/HCPCS: 59025; 80307; 81003; 99211; G0463

== ENCOUNTER 2019-01-23 14:07 | Inpatient (IN) | payer MEDICAID ==
[~2019-01-23] VITALS: Ht 170.2 cm; Wt 110.0 kg
[2019-01-24] MEDS ORDERED: METOCLOPRAMIDE 5 MG/ML, 2ML IV ONE (10:00)
[2019-01-24] MEDS ORDERED: LACTATED RINGERS 1,000 ML IVBOLUS ONE (10:00)
[2019-01-24] MEDS ORDERED: LACTATED RINGERS 1,000 ML IV SCH (10:00)
[2019-01-24] MEDS ORDERED: SODIUM CITRATE/CITRIC ACID 30 ML UDC PO ONE (10:00)
[2019-01-24 10:26] LABS: AMPHETAMINE SCREEN, URINE Negative (Negative); BARBITURATE SCREEN, URINE Negative (Negative); BENZODIAZEPINE SCREEN, URINE Negative (Negative); CANNABINOID SCREEN, URINE Negative (Negative); COCAINE SCREEN, URINE Negative (Negative); METHADONE SCREEN, URINE Negative (Negative); OPIATE SCREEN, URINE Negative (Negative)
[2019-01-24 10:29] VITALS: BP 131/72
[2019-01-24 10:33] LABS: BASOPHILS # (AUTO) 0.03 x10^3/uL (0-0.1); BASOPHILS % (AUTO) 0 % (0-1); EOSINOPHILS # (AUTO) 0.06 x10^3/uL (0-0.4); EOSINOPHILS % (AUTO) 0 % (1-7); LYMPHOCYTES # (AUTO) 1.71 x10^3/uL (1-3.4); LYMPHOCYTES % (AUTO) 11 % (22-44); MD NO; MEAN CORPUSCULAR HEMOGLOBIN 26.7 pg (27.0-34.8); MEAN CORPUSCULAR HGB CONC 31.6 g/dL (32.4-35.8); MEAN CORPUSCULAR VOLUME 84.3 fL (80-100); MEAN PLATELET VOLUME 7.7 fL (7.4-10.4); MONOCYTES # (AUTO) 0.83 x10^3/uL (0.2-0.8); MONOCYTES % (AUTO) 5 % (2-9); NEUTROPHILS # (AUTO) 13.65 x10^3/uL (1.8-6.8); NEUTROPHILS % (AUTO) 84 % (42-75); PLATELET COUNT 366 x10^3/uL (130-400); RED BLOOD COUNT 4.11 x10^6/uL (3.82-5.3); RED CELL DISTRIBUTION WIDTH 15.6 % (9.6-15.2)
[2019-01-24] MEDS ORDERED: NEWBORN KIT ONE (11:17)
[2019-01-24] MEDS ORDERED: SODIUM CITRATE/CITRIC ACID 30 ML UDC ONE (11:17)
[2019-01-24] MEDS ORDERED: METOCLOPRAMIDE 5 MG/ML, 2ML ONE (11:18)
[2019-01-24] MEDS ORDERED: OXYTOCIN 30U/ 0.9% NaCL 500ML 500 ML ONE (11:18)
[2019-01-24] MEDS ORDERED: OXYcodone 5 MG/5 ML ORAL.SOL UDC PO PRN (11:30)
[2019-01-24] MEDS ORDERED: HYDROmorphone 2 MG/ML, 1ML IVPush PRN (11:30)
[2019-01-24] MEDS ORDERED: MEPERIDINE/PF 25MG/0.5ML IVPush PRN (11:30)
[2019-01-24] MEDS ORDERED: EPHEDRINE 50 MG/ML, 1ML IVPush PRN (11:30)
[2019-01-24] MEDS ORDERED: HYDROcodone/APAP 7.5-325MG/15ML UDC PO PRN (11:30)
[2019-01-24] MEDS ORDERED: ALBUTEROL SULFATE 2.5 MG/3 ML NPPB PRN (11:30)
[2019-01-24] MEDS ORDERED: PROMETHAZINE 25 MG/ML, 1ML IV PRN (11:30)
[2019-01-24] MEDS ORDERED: FENTANYL PF 100 MCG/2ML IV PRN (11:30)
[2019-01-24] MEDS ORDERED: LABETALOL 5MG/ML, 20ML IV PRN (11:30)
[2019-01-24] MEDS ORDERED: ONDANSETRON 2MG/ML, 2ML IVPush PRN (11:30)
[2019-01-24] MEDS ORDERED: hydrALAzine 20 MG/ML, 1ML IV PRN (11:30)
[2019-01-24] MEDS ORDERED: KETOROLAC 30 MG/1 ML ONE (11:39)
[2019-01-24] MEDS ORDERED: OXYTOCIN 10 UNITS/ML, 1ML ONE (11:39)
[2019-01-24] MEDS ORDERED: CEFAZOLIN 1,000 MG ONE (11:39)
[2019-01-24] MEDS ORDERED: DEXAMETHASONE 4 MG/ML, 1ML ONE (11:39)
[2019-01-24] MEDS ORDERED: ONDANSETRON 2MG/ML, 2ML ONE (11:39)
[2019-01-24] MEDS ORDERED: EPHEDRINE 50 MG/ML, 1ML ONE (11:39)
[2019-01-24] MEDS ORDERED: PHENYLEPHRINE 10 MG/ML ONE (11:39)
[2019-01-24] MEDS ORDERED: FENTANYL PF 100 MCG/2ML ONE (11:40)
[2019-01-24] MEDS: LACTATED RINGERS 1,000 ML IV SCH ×4 (12:30→22:05)
[2019-01-24] MEDS ORDERED: ONDANSETRON 2MG/ML, 2ML IV PRN (12:30)
[2019-01-24] MEDS: KETOROLAC 30 MG/1 ML IV SCH ×2 (12:30→19:13)
[2019-01-24] MEDS ORDERED: DIPH,PERTUSS(ACELL),TET VAC/PF NC IM-VACC PRN (12:30)
[2019-01-24] MEDS ORDERED: ACETAMINOPHEN 325 MG TABLET PO PRN (12:30)
[2019-01-24] MEDS ORDERED: morphine SULFATE 10 MG/ML, 1ML IVPush PRN (12:30)
[2019-01-24] MEDS ORDERED: MISOPROSTOL 200 MCG TABLET PR PRN (12:30)
[2019-01-24] MEDS ORDERED: MORPHINE SULFATE 4 MG/ML, 1ML IVPush PRN (12:30)
[2019-01-24] MEDS ORDERED: HYDROmorphone 2 MG/ML, 1ML ONE (12:42)
[2019-01-24] MEDS ORDERED: MIDAZOLAM 1 MG/ML, 2ML ONE ×2 (12:42→14:24)
[2019-01-24] MEDS: OXYTOCIN 30U/ 0.9% NaCL 500ML 500 ML IV SCH ×2 (14:08→22:05)
[2019-01-24] MEDS: MIDAZOLAM 1 MG/ML, 2ML IV PRN ×2 (14:27→14:39)
[2019-01-24] MEDS ORDERED: DIPHENHYDRAMINE 50 MG/ML, 1ML IVPush ONE (15:00)
[2019-01-24 15:25] VITALS: BP 116/79
[2019-01-24] MEDS: OXYcodone/APAP 5/325MG TABLET PO PRN ×3 (16:39→20:59)
[2019-01-24 19:30] VITALS: BP 124/75
[2019-01-24] MEDS: NICOTINE 14MG/24 HR PATCH.TD24 TD SCH (20:00)
[2019-01-24 20:50] LABS: MEAN CORPUSCULAR HEMOGLOBIN 27.4 pg (27.0-34.8); MEAN CORPUSCULAR HGB CONC 32.8 g/dL (32.4-35.8); MEAN CORPUSCULAR VOLUME 83.5 fL (80-100); MEAN PLATELET VOLUME 7.8 fL (7.4-10.4); PLATELET COUNT 337 x10^3/uL (130-400); RED BLOOD COUNT 3.52 x10^6/uL (3.82-5.3)
[2019-01-24 20:57] LABS: BASOPHILS % (AUTO) 0 % (0-1); EOSINOPHILS % (AUTO) 0 % (1-7); LYMPHOCYTES # (AUTO) 1.37 x10^3/uL (1-3.4); LYMPHOCYTES % (AUTO) 7 % (22-44); MD SCAN; MONOCYTES # (AUTO) 0.75 x10^3/uL (0.2-0.8); MONOCYTES % (AUTO) 4 % (2-9); NEUTROPHILS # (AUTO) 16.89 x10^3/uL (1.8-6.8); NEUTROPHILS % (AUTO) 89 % (42-75)
[2019-01-24] MEDS: DOCUSATE 100 MG CAPSULE PO PRN (20:59)
[2019-01-25] MEDS: KETOROLAC 30 MG/1 ML IV SCH ×4 (01:06→20:06)
[2019-01-25 01:15] VITALS: BP 123/72
[2019-01-25] MEDS: OXYcodone/APAP 5/325MG TABLET PO PRN ×6 (01:45→22:52)
[2019-01-25] MEDS: LACTATED RINGERS 1,000 ML IV SCH ×2 (04:05→08:05)
[2019-01-25 05:15] VITALS: BP 110/65
[2019-01-25] MEDS ORDERED: RHOGAM FROM BLOOD BANK 1 NOTE EA IM/IV ONE (05:30)
[2019-01-25] MEDS: DOCUSATE 100 MG CAPSULE PO PRN ×2 (07:34→22:52)
[2019-01-25] MEDS: PRENATAL VIT/IRON/FA 1 EACH TABLET PO SCH (07:34)
[2019-01-25 07:45] VITALS: BP 107/69
[2019-01-25] MEDS: OXYTOCIN 30U/ 0.9% NaCL 500ML 500 ML IV SCH (08:05)
[2019-01-25 09:57] LABS: MEAN CORPUSCULAR HEMOGLOBIN 26.8 pg (27.0-34.8); MEAN CORPUSCULAR HGB CONC 31.8 g/dL (32.4-35.8); MEAN CORPUSCULAR VOLUME 84.3 fL (80-100); PLATELET COUNT 332 x10^3/uL (130-400); RED CELL DISTRIBUTION WIDTH 15.7 % (9.6-15.2)
[2019-01-25 10:18] LABS: BASOPHILS # (AUTO) 0.03 x10^3/uL (0-0.1); BASOPHILS % (AUTO) 0 % (0-1); EOSINOPHILS # (AUTO) 0.07 x10^3/uL (0-0.4); EOSINOPHILS % (AUTO) 1 % (1-7); LYMPHOCYTES % (AUTO) 13 % (22-44); MD SCAN; MONOCYTES # (AUTO) 0.85 x10^3/uL (0.2-0.8); MONOCYTES % (AUTO) 6 % (2-9); NEUTROPHILS # (AUTO) 11.29 x10^3/uL (1.8-6.8); NEUTROPHILS % (AUTO) 80 % (42-75)
[2019-01-25 12:30] VITALS: BP 106/69
[2019-01-25] MEDS: NICOTINE 14MG/24 HR PATCH.TD24 TD SCH (16:30)
[2019-01-25 16:55] VITALS: BP 109/71
[2019-01-26] MEDS: KETOROLAC 30 MG/1 ML IV SCH ×2 (02:17→08:29)
[2019-01-26] MEDS: OXYcodone/APAP 5/325MG TABLET PO PRN ×5 (03:42→22:40)
[2019-01-26 08:15] VITALS: BP 115/73
[2019-01-26] MEDS: PRENATAL VIT/IRON/FA 1 EACH TABLET PO SCH (08:29)
[2019-01-26] MEDS: DOCUSATE 100 MG CAPSULE PO PRN ×2 (08:29→22:40)
[2019-01-26] MEDS ORDERED: OMNIPAQUE 350 MG/ML, 100ML BOTTLE ONE (09:31)
[2019-01-26] MEDS: NICOTINE 14MG/24 HR PATCH.TD24 TD SCH (16:30)
[2019-01-26 20:00] VITALS: BP 132/69
[2019-01-26] MEDS: CALCIUM CARBONATE 500 MG TAB.CHEW PO PRN ×2 (20:33→23:00)
[2019-01-26] MEDS: IBUPROFEN 600 MG TABLET PO PRN (22:40)
[2019-01-27] MEDS: IBUPROFEN 600 MG TABLET PO PRN ×2 (04:52→12:07)
[2019-01-27] MEDS: OXYcodone/APAP 5/325MG TABLET PO PRN ×2 (05:30→09:48)
[2019-01-27 08:25] VITALS: BP 115/72
[2019-01-27] MEDS: PRENATAL VIT/IRON/FA 1 EACH TABLET PO SCH (09:48)
[2019-01-27] MEDS: DOCUSATE 100 MG CAPSULE PO PRN (09:48)
[2019-01-27] MEDS ORDERED: IBUP-1222 PO (12:18)
[2019-01-27] MEDS ORDERED: OXYC-302 PO (12:18)
== END 2019-01-27 13:55 | disposition home or self-care (01) | DRG 784 ==
LOC: LDIP 01-24 09:57 → 2NW 01-24 15:18
PROVIDERS: ADMIT Obstetrics & Gynecology; ATTEND Obstetrics & Gynecology
PROC: 10D00Z1 Extraction of Products of Conception, Low, Open Approach (ICD-10-PCS; principal; 2019-01-24)
PROC: 0UB70ZZ Excision of Bilateral Fallopian Tubes, Open Approach (ICD-10-PCS; 2019-01-24)
PROC: 3E0234Z Introduction of Serum, Toxoid and Vaccine into Muscle, Percutaneous Approach (ICD-10-PCS; 2019-01-25)
DX: O69.81X0 Labor and delivery complicated by cord around neck, without compression, not applicable or unspecified (principal); O72.0 Third-stage hemorrhage; O99.344 Other mental disorders complicating childbirth; F41.8 Other specified anxiety disorders; O26.893 Other specified pregnancy related conditions, third trimester; K21.9 Gastro-esophageal reflux disease without esophagitis; F41.9 Anxiety disorder, unspecified; F32.9 Major depressive disorder, single episode, unspecified; O99.62 Diseases of the digestive system complicating childbirth; Z3A.39 39 weeks gestation of pregnancy; Z37.0 Single live birth; Z30.2 Encounter for sterilization; Z67.41 Type O blood, Rh negative; Z64.1 Problems related to multiparity
CPT/HCPCS: 36415; J2790; 71045; 71275; 80307; 82803; 85025; 85461; 86850; 86870; 86900; 86922; 86923; 88302; 93005; G0378; J0690; J1100; J1170; J1885; J2250; J2405; J3010; Q9967; C1765; J2370; J2590; J2765; J7120

== ENCOUNTER 2019-02-07 16:50 | Emergency (ER) | payer MEDICAID ==
[~2019-02-07] VITALS: Ht 170.2 cm; Wt 106.3 kg
[~2019-02-07 16:50] MED LIST changes: +IBUP-1222 PO; +OXYC-302 PO
[2019-02-07 17:46] LABS: BASOPHILS # (AUTO) 0.05 x10^3/uL (0-0.1); BASOPHILS % (AUTO) 0 % (0-1); EOSINOPHILS # (AUTO) 0.22 x10^3/uL (0-0.4); EOSINOPHILS % (AUTO) 2 % (1-7); LYMPHOCYTES # (AUTO) 2.93 x10^3/uL (1-3.4); LYMPHOCYTES % (AUTO) 21 % (22-44); MD NO; MEAN CORPUSCULAR HGB CONC 32.5 g/dL (32.4-35.8); MONOCYTES % (AUTO) 5 % (2-9); NEUTROPHILS # (AUTO) 10.03 x10^3/uL (1.8-6.8); NEUTROPHILS % (AUTO) 72 % (42-75); PLATELET COUNT 662 x10^3/uL (130-400); RED BLOOD COUNT 4.67 x10^6/uL (3.82-5.3); RED CELL DISTRIBUTION WIDTH 15.7 % (9.6-15.2)
[2019-02-07 17:47] LABS: MICROSCOPIC AUTO
[2019-02-07 17:52] LABS: CULTURE INDICATED? NO
[2019-02-07 17:53] LABS: ALANINE AMINOTRANSFERASE 25 U/L (12-78); ALBUMIN 3.3 g/dL (3.4-5.0); ANION GAP 9 mmol/L (5-15); CALCIUM 8.8 mg/dL (8.5-10.1); CHLORIDE 107 mmol/L (98-107); CREATININE 0.71 mg/dL (0.55-1.02)
[2019-02-07 17:55] LABS: ALKALINE PHOSPHATASE 153 U/L (45-117); BILIRUBIN,TOTAL 0.2 mg/dL (0.2-1.0); TOTAL PROTEIN 7.8 g/dL (6.4-8.2)
[2019-02-07] MEDS ORDERED: OXYcodone/APAP 5/325MG TABLET PO ONE (20:30)
[2019-02-07] MEDS ORDERED: ONDANSETRON ODT 4 MG PO ONE (20:30)
[2019-02-07] MEDS ORDERED: ONDANSETRON ODT 4 MG ONE (20:31)
[2019-02-07] MEDS ORDERED: OXYcodone/APAP 5/325MG TABLET ONE (20:31)
[2019-02-07 21:15] LABS: AMPHETAMINE SCREEN, URINE Negative (Negative); BARBITURATE SCREEN, URINE Negative (Negative); BENZODIAZEPINE SCREEN, URINE Negative (Negative); CANNABINOID SCREEN, URINE Negative (Negative); COCAINE SCREEN, URINE Negative (Negative); METHADONE SCREEN, URINE Negative (Negative); OPIATE SCREEN, URINE Negative (Negative)
--- NOTE | 2019-02-07 21:20 | NUR ---
ASSUMED CARE OF PATIENT. REPORT GIVEN FROM OVIDIO ARDON. PT WENT TO US. VS STABLE.
--- NOTE | 2019-02-07 22:21 | NUR ---
TO SEE PT RESTING IN ROOM. NO ACUTE DISTRESS NOTED. WILL CONTINUE TO MONITOR.
[2019-02-07 22:52] VITALS: BP 126/86
== END 2019-02-07 22:54 | disposition home or self-care (01) ==
LOC: ED 21:30
DX: R10.84 Generalized abdominal pain (principal); K59.00 Constipation, unspecified; F32.9 Major depressive disorder, single episode, unspecified; F17.210 Nicotine dependence, cigarettes, uncomplicated
CPT/HCPCS: 36415; 74021; 76700; 80053; 80307; 81001; 83690; 85025; 99284; Q0162

== ENCOUNTER 2019-02-13 18:37 | Emergency (ER) | payer MEDICAID ==
[~2019-02-13] VITALS: Ht 170.2 cm; Wt 104.5 kg
--- NOTE | 2019-02-13 19:07 | NUR ---
ASSUMING CARE OF PT. FROM OVIDIO MUNIZ TO ASSUME PT. CARE: BIB [facility] FOR C/O LBP X 5 DAYS. DENIES INJURY BUT DOES REPORT 20 DAYS AGO. PT. ALSO C/O NEW ONSET 6/10 EPIGASTRIC CP STARTING EARILER TODAY DESCRIBED PRESSURE. STATES "IT'S THE SAME CP I HAD DURING MY ." 2 PIV'S EN ROUTE WITH 324 ASA, 3 SL NITRO TABS, AND 4MG IVP ZOFRAN. PT. REPORTS PAIN WAS WORSE PRIOR TO MEDS. DENIES ANY CARDIAC HX. PT. PLACED ON CONTINUOUS PULSE OX, BP, AND HEART MONITORS. NOLVIA MUSTAFA AND DR. RODGERS HAVE BEEN IN TO EVAL PT. AND DISCUSS POC. CALL LIGHT IN REACH; ALL SAFTEY MEASURES OBSERVED.
[2019-02-13 19:20] LABS: BASOPHILS # (AUTO) 0.04 x10^3/uL (0-0.1); BASOPHILS % (AUTO) 0 % (0-1); EOSINOPHILS % (AUTO) 2 % (1-7); LYMPHOCYTES # (AUTO) 2.71 x10^3/uL (1-3.4); LYMPHOCYTES % (AUTO) 21 % (22-44); MD NO; MEAN CORPUSCULAR HEMOGLOBIN 26.8 pg (27.0-34.8); MEAN CORPUSCULAR HGB CONC 32.4 g/dL (32.4-35.8); MEAN CORPUSCULAR VOLUME 82.8 fL (80-100); MEAN PLATELET VOLUME 6.8 fL (7.4-10.4); MONOCYTES # (AUTO) 0.63 x10^3/uL (0.2-0.8); MONOCYTES % (AUTO) 5 % (2-9); NEUTROPHILS # (AUTO) 9.35 x10^3/uL (1.8-6.8); NEUTROPHILS % (AUTO) 72 % (42-75); PLATELET COUNT 507 x10^3/uL (130-400); RED BLOOD COUNT 4.28 x10^6/uL (3.82-5.3); RED CELL DISTRIBUTION WIDTH 15.6 % (9.6-15.2)
--- NOTE | 2019-02-13 19:20 | NUR ---
PT. IS OUT OF ROOM FOR IMAGING.
[2019-02-13 19:30] LABS: ALANINE AMINOTRANSFERASE 28 U/L (12-78); ANION GAP 8 mmol/L (5-15); CALCIUM 8.1 mg/dL (8.5-10.1); CHLORIDE 108 mmol/L (98-107); CREATININE 0.72 mg/dL (0.55-1.02)
[2019-02-13 19:34] LABS: ALKALINE PHOSPHATASE 139 U/L (45-117); BILIRUBIN,TOTAL 0.1 mg/dL (0.2-1.0); TOTAL PROTEIN 6.6 g/dL (6.4-8.2); TROPONIN I < 0.015 ng/mL (0.000-0.045)
--- NOTE | 2019-02-13 20:21 | NUR ---
PT. PROVIDED WITH URINE CUP AND INSTRUCITONS FOR CLEAN CATCH UA. PT. ABLE TO AMBULATE DOWN THE CHO TO THE BR WITH STEADY GAIT.
--- NOTE | 2019-02-13 20:29 | NUR ---
URINE SENT TO LAB. ALL MONITORS REPLACED.
[2019-02-13 20:48] LABS: MICROSCOPIC AUTO
[2019-02-13 20:53] LABS: CULTURE INDICATED? NO
--- NOTE | 2019-02-13 21:05 | NUR ---
PT. CHART UP FOR RECHECK AT THIS TIME.
[2019-02-13 21:13] VITALS: BP 111/69
--- NOTE | 2019-02-13 21:13 | NUR ---
PT. CALLED RN TO ROOM; PT. VERY TEARFUL AND REPORTING CONTINUED BACK PAIN AND NOW C/O PÉREZ. DISCUSSED WITH NOLVIA MUSTAFA AND DR. RODGERS. NO NEW ORDERS AT THIS TIME. PT. TO BE RECHECKED BY ERP.
--- NOTE | 2019-02-13 21:21 | NUR ---
NOLVIA MUSTAFA IN TO DISCUSS PLAN FOR D/C WITH PT.
[2019-02-13] MEDS ORDERED: ACETAMINOPHEN 325 MG TABLET ONE (21:22)
--- NOTE | 2019-02-13 21:26 | NUR ---
PT. MEDICATED PER JAN FOR PÉREZ. TOOK OUT OWN IV'S AND IS AMBULATING TO D/C DESK WITH STEADY GAIT. PAPERWORK GIVEN TO PT.
[2019-02-13] MEDS ORDERED: ACETAMINOPHEN 325 MG TABLET PO ONE (21:30)
== END 2019-02-13 21:27 | disposition home or self-care (01) ==
LOC: ED 20:50
DX: S39.012A Strain of muscle, fascia and tendon of lower back, initial encounter (principal); R07.9 Chest pain, unspecified; F32.9 Major depressive disorder, single episode, unspecified; F41.1 Generalized anxiety disorder; Z87.01 Personal history of pneumonia (recurrent); X58.XXXA Exposure to other specified factors, initial encounter; Y93.89 Activity, other specified; Y92.89 Other specified places as the place of occurrence of the external cause; Y99.8 Other external cause status
CPT/HCPCS: 36415; 72110; 80053; 81001; 84484; 85025; 93005; 99284

== ENCOUNTER 2019-03-17 08:33 | Emergency (ER) | payer MEDICAID, OTHER ==
[~2019-03-17] VITALS: Ht 170.2 cm; Wt 109.0 kg
[2019-03-17 10:33] LABS: BASOPHILS # (AUTO) 0.18 x10^3/uL (0-0.1); BASOPHILS % (AUTO) 1 % (0-1); EOSINOPHILS # (AUTO) 0.11 x10^3/uL (0-0.4); EOSINOPHILS % (AUTO) 1 % (1-7); LYMPHOCYTES # (AUTO) 2.35 x10^3/uL (1-3.4); LYMPHOCYTES % (AUTO) 15 % (22-44); MD NO; MEAN CORPUSCULAR HEMOGLOBIN 26.2 pg (27.0-34.8); MEAN CORPUSCULAR HGB CONC 32.3 g/dL (32.4-35.8); MEAN CORPUSCULAR VOLUME 81.3 fL (80-100); MEAN PLATELET VOLUME 7.6 fL (7.4-10.4); MONOCYTES # (AUTO) 0.88 x10^3/uL (0.2-0.8); MONOCYTES % (AUTO) 6 % (2-9); NEUTROPHILS # (AUTO) 12.08 x10^3/uL (1.8-6.8); NEUTROPHILS % (AUTO) 78 % (42-75); PLATELET COUNT 507 x10^3/uL (130-400); RED BLOOD COUNT 5.24 x10^6/uL (3.82-5.3); RED CELL DISTRIBUTION WIDTH 15.8 % (9.6-15.2)
[2019-03-17 10:42] LABS: ALANINE AMINOTRANSFERASE 32 U/L (12-78); ALBUMIN 3.6 g/dL (3.4-5.0); ANION GAP 7 mmol/L (5-15); CALCIUM 9.5 mg/dL (8.5-10.1); CHLORIDE 105 mmol/L (98-107); CREATININE 0.76 mg/dL (0.55-1.02)
[2019-03-17 10:48] LABS: ALKALINE PHOSPHATASE 152 U/L (45-117); BILIRUBIN,TOTAL 0.2 mg/dL (0.2-1.0); TOTAL PROTEIN 8.2 g/dL (6.4-8.2)
--- NOTE | 2019-03-17 11:16 | NUR ---
B/P, SPO2, [address] CALL LIGHT WITHIN REACH
[2019-03-17] MEDS ORDERED: MAALOX/HYOSCYAMINE/LIDOCAINE 45 ML BTL ONE (11:19)
[2019-03-17] MEDS ORDERED: MAALOX/HYOSCYAMINE/LIDOCAINE 45 ML BTL PO ONE (11:30)
--- NOTE | 2019-03-17 11:47 | NUR ---
PT DENIES RELIEF FROM GI COCKTAIL. DR STEWART AWARE. AWAITING NEW ORDERS
[2019-03-17 11:51] VITALS: BP 145/99
== END 2019-03-17 13:00 | disposition home or self-care (01) ==
LOC: ED 11:09
DX: M94.0 Chondrocostal junction syndrome [Tietze] (principal); R07.89 Other chest pain; F32.9 Major depressive disorder, single episode, unspecified
CPT/HCPCS: 36415; 71046; 80053; 83690; 84703; 85025; 93005; 99284

== ENCOUNTER 2019-03-17 13:49 | Emergency (ER) | payer MEDICAID, OTHER ==
[~2019-03-17] VITALS: Ht 170.2 cm; Wt 105.2 kg
--- NOTE | 2019-03-17 14:45 | NUR ---
PT TO ROOM AT THIS TIME.
--- NOTE | 2019-03-17 15:32 | NUR ---
PT RESTING ON GURNEY. PT STILL TEARFUL. PT STATES "I NEED HELP. HELP FOR MYSELF AND MY CHILDREN." NO ACUTE DISTRESS NOTED. VSS.
[2019-03-17 15:33] VITALS: BP 131/79
--- NOTE | 2019-03-17 15:53 | NUR ---
[facility] called and chart faxed.
[2019-03-17 15:57] LABS: SALICYLATE LEVEL 3.9 mg/dL (2.8-20.0)
[2019-03-17 16:01] LABS: ACETAMINOPHEN < 2 mcg/mL (10-30)
--- NOTE | 2019-03-17 16:10 | NUR ---
PT AMBULATORY WITH STEADY GAIT TO BATHROOM.
--- NOTE | 2019-03-17 17:05 | NUR ---
Patient/Caregiver given discharge instructions and they have confirmed that they understand the instructions. Patient ambulatory with steady gait. pt still denies HI/SI. PT LEFT WITH ALL PERSONAL BELONGINGS.
== END 2019-03-17 17:15 | disposition home or self-care (01) ==
LOC: ED 14:58
DX: F41.1 Generalized anxiety disorder (principal); F32.9 Major depressive disorder, single episode, unspecified
CPT/HCPCS: 36415; 80307; 80329; 84443; 99284; G0480

== ENCOUNTER 2019-03-26 08:10 | Emergency (ER) | payer MEDICAID ==
[~2019-03-26] VITALS: Ht 170.2 cm; Wt 100.0 kg
--- NOTE | 2019-03-26 08:25 | NUR ---
BELONGINGS SECURED FOR SAFETY
--- NOTE | 2019-03-26 08:45 | NUR ---
sanitary pad given.
[2019-03-26] MEDS ORDERED: MAALOX/HYOSCYAMINE/LIDOCAINE 45 ML BTL ONE (08:49)
[2019-03-26] MEDS ORDERED: MAALOX/HYOSCYAMINE/LIDOCAINE 45 ML BTL PO ONE (09:00)
--- NOTE | 2019-03-26 09:18 | NUR ---
US sent . Currently in imaging
[2019-03-26 09:26] LABS: ALANINE AMINOTRANSFERASE 38 U/L (12-78); ALBUMIN 3.3 g/dL (3.4-5.0); ANION GAP 5 mmol/L (5-15); CALCIUM 8.6 mg/dL (8.5-10.1); CHLORIDE 111 mmol/L (98-107); SALICYLATE LEVEL 3.8 mg/dL (2.8-20.0)
[2019-03-26 09:28] LABS: ALKALINE PHOSPHATASE 124 U/L (45-117); BASOPHILS # (AUTO) 0.03 x10^3/uL (0-0.1); BASOPHILS % (AUTO) 0 % (0-1); BILIRUBIN,TOTAL 0.2 mg/dL (0.2-1.0); CREATININE 0.73 mg/dL (0.55-1.02); EOSINOPHILS # (AUTO) 0.06 x10^3/uL (0-0.4); EOSINOPHILS % (AUTO) 0 % (1-7); LYMPHOCYTES # (AUTO) 1.14 x10^3/uL (1-3.4); LYMPHOCYTES % (AUTO) 7 % (22-44); MD NO; MEAN CORPUSCULAR HEMOGLOBIN 26.3 pg (27.0-34.8); MEAN CORPUSCULAR HGB CONC 32.6 g/dL (32.4-35.8); MEAN CORPUSCULAR VOLUME 80.9 fL (80-100); MEAN PLATELET VOLUME 7.8 fL (7.4-10.4); MONOCYTES # (AUTO) 0.49 x10^3/uL (0.2-0.8); MONOCYTES % (AUTO) 3 % (2-9); NEUTROPHILS # (AUTO) 13.88 x10^3/uL (1.8-6.8); NEUTROPHILS % (AUTO) 89 % (42-75); PLATELET COUNT 424 x10^3/uL (130-400); RED BLOOD COUNT 4.98 x10^6/uL (3.82-5.3); RED CELL DISTRIBUTION WIDTH 15.7 % (9.6-15.2); TOTAL PROTEIN 7.2 g/dL (6.4-8.2); TROPONIN I < 0.015 ng/mL (0.000-0.045)
[2019-03-26 09:30] LABS: HCG UR SG 1.014 (1.003-1.030)
[2019-03-26 09:31] LABS: CULTURE INDICATED? NO; MICROSCOPIC AUTO
[2019-03-26 09:34] LABS: ACETAMINOPHEN < 2 mcg/mL (10-30)
[2019-03-26 09:36] LABS: AMPHETAMINE SCREEN, URINE Negative (Negative); BARBITURATE SCREEN, URINE Negative (Negative); BENZODIAZEPINE SCREEN, URINE Positive (Negative); CANNABINOID SCREEN, URINE Negative (Negative); COCAINE SCREEN, URINE Negative (Negative); METHADONE SCREEN, URINE Negative (Negative); OPIATE SCREEN, URINE Negative (Negative)
--- NOTE | 2019-03-26 10:26 | NUR ---
SANITARY PADS GIVEN
--- NOTE | 2019-03-26 10:33 | NUR ---
soc called for consult
--- NOTE | 2019-03-26 10:43 | NUR ---
MONITOR 176 IN ROOM
--- NOTE | 2019-03-26 11:34 | NUR ---
PT CAUGHT SMOKING IN THE RESTROOM. EDUCATION GIVEN.
[2019-03-26 11:37] VITALS: BP 138/92
--- NOTE | 2019-03-26 11:56 | NUR ---
PT REPORTS IMPROVED ABD PAIN
--- NOTE | 2019-03-26 12:08 | NUR ---
MEAL TRAY ORDERED
--- NOTE | 2019-03-26 12:35 | NUR ---
REPORT TO SOC
--- NOTE | 2019-03-26 12:51 | NUR ---
PT LEFT WITHOUT DC PAPERWORK.
== END 2019-03-26 12:52 | disposition home or self-care (01) ==
LOC: ED 10:05
DX: R45.851 Suicidal ideations (principal); K21.0 Gastro-esophageal reflux disease with esophagitis; N83.292 Other ovarian cyst, left side; F32.9 Major depressive disorder, single episode, unspecified
CPT/HCPCS: 36415; 71045; 76830; 80053; 80307; 81001; 81025; 83690; 84484; 85025; 93005; 99284

== ENCOUNTER 2019-03-26 15:44 | Emergency (ER) | payer MEDICAID ==
[2019-03-26 15:53] VITALS: BP 153/103
--- NOTE | 2019-03-26 15:55 | NUR ---
HERMELINDO LOYOLA FOR SI, PT WAS DC'D FROM [facility] 2HRS AGO, DID NOT FOLLOW DC INSTRUCTIONS HOWEVER STATES "I CAN'T TAKE THIS ANYMORE, I FEEL LIKE I'M BURNING FROM THE INSIDE, THERE IS FLUID IN MY EARS, I'M DEHYDRATED, I WANT TO KILL MYSELF BECAUSE I CANT TAKE THIS". PA AT BEDSIDE. 1 BAG BELONGINGS SECURED IN PSYCH LOCKER. SITTER AT BEDSIDE
--- NOTE | 2019-03-26 16:52 | NUR ---
RN BROUGHT PT DC PAPERWORK, PT STATES "I DON'T WANT TO GO HOME, WHAT ARE YOU GOING TO DO IF I OFF MYSELF", RN ASKED IF PT WANTED TO DO THAT, PT STATED "YES I TOLD THEM THAT", AND RIVAS NOTIFIED. MD TO BEDSIDE TO TALK TO PT AT LENGTH, DISCUSSED POC AND PT STATED "I WANT A BARIUM SWALLOW, I MESSED UP MY BODY FROM [place]", DISCUSSED THAT PT WAS SEEN, CLEARED AND NOT PUT ON A LEGAL HOLD BY PSYCHIATRY TODAY, DISCUSSED WITH PT THAT SHE HAS FU APPT WITH PSYCHIATRY AND GI DR TOMORROW FOR OUTPAITNET PROCEDURE, PT STATED "I DON'T WANT TO GO HOME AND FROM A HEART ATTACK", AND RIVAS DISCUSSED POC WITH PT, PT COMMUNICATED UNDERSTANDING OF POC. PT SIGNED DC PAPERWORK.
== END 2019-03-26 16:59 | disposition home or self-care (01) ==
LOC: ED 16:33
DX: R10.13 Epigastric pain (principal); K21.9 Gastro-esophageal reflux disease without esophagitis
CPT/HCPCS: 99283

== ENCOUNTER 2019-04-01 17:02 | Emergency (ER) | payer MEDICAID ==
[~2019-04-01] VITALS: Ht 170.2 cm; Wt 109.0 kg
--- NOTE | 2019-04-01 17:09 | NUR ---
PT. ARRIVES BY [facility] WITH C/O ABD. PAIN, COUGH, HEMATURIA AND CONSTIPATION. PT. HAS THE CP MONITOR IN PLACE. PT. IS TEARFUL. SIDERAILS ARE UP X 2 WITH THE CALL LIGHT IN PLACE. PT. IS PINK, WARM AND DRY. LUNGS ARE CTA. PT.'S ABD. IS TENDER WITH BS + 4 QUADS. PT. WAS GIVEN A BLANKET FOR WARMTH. HOB IS ELEVATED GREATER THAN 30 DEGREES.
[2019-04-01] MEDS ORDERED: MORPHINE SULFATE 4 MG/ML, 1ML IVPush PRN (17:30)
[2019-04-01] MEDS ORDERED: SODIUM CHLORIDE FLUSH 10ML SYR IVF ONE (17:30)
[2019-04-01] MEDS ORDERED: ONDANSETRON 2MG/ML, 2ML IVPush ONE (17:30)
[2019-04-01] MEDS ORDERED: ONDANSETRON 2MG/ML, 2ML ONE (17:44)
[2019-04-01] MEDS ORDERED: MORPHINE SULFATE 4 MG/ML, 1ML ONE (17:44)
[2019-04-01 17:49] LABS: BASOPHILS # (AUTO) 0.08 x10^3/uL (0-0.1); BASOPHILS % (AUTO) 1 % (0-1); EOSINOPHILS # (AUTO) 0.17 x10^3/uL (0-0.4); EOSINOPHILS % (AUTO) 1 % (1-7); LYMPHOCYTES # (AUTO) 2.54 x10^3/uL (1-3.4); LYMPHOCYTES % (AUTO) 20 % (22-44); MD NO; MEAN CORPUSCULAR HEMOGLOBIN 26.2 pg (27.0-34.8); MEAN CORPUSCULAR HGB CONC 31.5 g/dL (32.4-35.8); MEAN CORPUSCULAR VOLUME 83.3 fL (80-100); MEAN PLATELET VOLUME 7.5 fL (7.4-10.4); MONOCYTES # (AUTO) 0.59 x10^3/uL (0.2-0.8); MONOCYTES % (AUTO) 5 % (2-9); NEUTROPHILS % (AUTO) 74 % (42-75); PLATELET COUNT 496 x10^3/uL (130-400); RED BLOOD COUNT 5.06 x10^6/uL (3.82-5.3); RED CELL DISTRIBUTION WIDTH 15.6 % (9.6-15.2)
--- NOTE | 2019-04-01 17:58 | NUR ---
IV ACCESS ESTABLISHED. PT. WAS MEDICATED FOR PAIN ORDERED. PT. HAS THE PULSE OX AND BP CUFF IN PLACE. SIDERAILS REMAIN UP X [address] WITH [address] CALL LIGHT IN PLACE.
[2019-04-01 17:59] LABS: ALANINE AMINOTRANSFERASE 36 U/L (12-78); ALBUMIN 3.2 g/dL (3.4-5.0); ANION GAP 9 mmol/L (5-15); CALCIUM 8.9 mg/dL (8.5-10.1); CHLORIDE 106 mmol/L (98-107); CREATININE 0.65 mg/dL (0.55-1.02)
[2019-04-01 18:04] LABS: ALKALINE PHOSPHATASE 137 U/L (45-117); BILIRUBIN,TOTAL 0.1 mg/dL (0.2-1.0); TOTAL PROTEIN 7.7 g/dL (6.4-8.2)
[2019-04-01 19:16] LABS: MICROSCOPIC NOT IND
--- NOTE | 2019-04-01 19:17 | NUR ---
REPORT WAS GIVEN TO ELENA NOLAN.
[2019-04-01 19:20] LABS: CULTURE INDICATED? NO
[2019-04-01 20:36] VITALS: BP 124/74
--- NOTE | 2019-04-01 20:36 | NUR ---
Patient/Caregiver given discharge instructions and they have confirmed that they understand the instructions. Patient ambulatory with steady gait.
[2019-04-01] MEDS ORDERED: OMNIPAQUE 350 MG/ML, 100ML BOTTLE ONE (23:38)
[2019-04-02] MEDS ORDERED: SUCR1TAB TP (17:36)
[2019-04-02] MEDS ORDERED: QUET25TA70 PO (17:36)
== END 2019-04-01 20:36 | disposition home or self-care (01) ==
LOC: ED 17:23
DX: K59.00 Constipation, unspecified (principal); N83.292 Other ovarian cyst, left side; K76.89 Other specified diseases of liver; K21.9 Gastro-esophageal reflux disease without esophagitis
CPT/HCPCS: 36415; 74177; 80053; 81003; 83690; 84703; 85025; 96374; 96375; 99284; J2405; Q9967

== ENCOUNTER 2019-04-02 08:28 | Emergency (ER) | payer MEDICAID ==
[~2019-04-02] VITALS: Ht 170.2 cm; Wt 109.0 kg
--- NOTE | 2019-04-02 08:45 | NUR ---
All belongings removed from pt room. Pt in room with bed and blanket only.
--- NOTE | 2019-04-02 08:53 | NUR ---
trade facilitator notified that pt is high risk score 10. Trell RN sitting at BS
[2019-04-02 09:16] LABS: AMPHETAMINE SCREEN, URINE Negative (Negative); BARBITURATE SCREEN, URINE Negative (Negative); BENZODIAZEPINE SCREEN, URINE Positive (Negative); CANNABINOID SCREEN, URINE Negative (Negative); COCAINE SCREEN, URINE Negative (Negative); METHADONE SCREEN, URINE Negative (Negative); OPIATE SCREEN, URINE Positive (Negative)
[2019-04-02 09:18] LABS: ALBUMIN 3.1 g/dL (3.4-5.0); ANION GAP 8 mmol/L (5-15); CALCIUM 8.6 mg/dL (8.5-10.1); CHLORIDE 105 mmol/L (98-107); SALICYLATE LEVEL 2.9 mg/dL (2.8-20.0)
[2019-04-02 09:22] LABS: ACETAMINOPHEN < 2 mcg/mL (10-30)
[2019-04-02 09:30] LABS: MEAN CORPUSCULAR HEMOGLOBIN 26.6 pg (27.0-34.8); MEAN CORPUSCULAR HGB CONC 32.5 g/dL (32.4-35.8); MEAN CORPUSCULAR VOLUME 81.8 fL (80-100); MEAN PLATELET VOLUME 7.4 fL (7.4-10.4); PLATELET COUNT 452 x10^3/uL (130-400); RED BLOOD COUNT 4.95 x10^6/uL (3.82-5.3); RED CELL DISTRIBUTION WIDTH 15.5 % (9.6-15.2)
--- NOTE | 2019-04-02 09:35 | NUR ---
Tele psych set up and in room
[2019-04-02 10:02] LABS: BASOPHILS # (AUTO) 0.15 x10^3/uL (0-0.1); BASOPHILS % (AUTO) 1 % (0-1); EOSINOPHILS # (AUTO) 0.11 x10^3/uL (0-0.4); EOSINOPHILS % (AUTO) 1 % (1-7); LYMPHOCYTES % (AUTO) 19 % (22-44); MD SCAN; MONOCYTES # (AUTO) 0.55 x10^3/uL (0.2-0.8); MONOCYTES % (AUTO) 5 % (2-9); NEUTROPHILS % (AUTO) 74 % (42-75)
--- NOTE | 2019-04-02 10:44 | NUR ---
TELEPSYCH IN PROGRESS. SITTER MONITORING FROM [facility] FOR SAFETY.
--- NOTE | 2019-04-02 10:47 | NUR ---
Spoke with Dr. Farley with psych who is stating he will be admitting the pt.
--- NOTE | 2019-04-02 10:49 | NUR ---
Pt has hx Bulimia and ovarian cyst
[2019-04-02] MEDS ORDERED: SODIUM CHLORIDE FLUSH 10ML SYR IVF PRN (13:00)
--- NOTE | 2019-04-02 13:19 | NUR ---
Hospitalist at BS. Pt sitting on floor, refusing to sit in bed.
[2019-04-02] MEDS: NICOTINE 14MG/24 HR PATCH.TD24 TD SCH (13:30)
[2019-04-02] MEDS ORDERED: ACETAMINOPHEN 325 MG TABLET PO PRN (13:30)
--- NOTE | 2019-04-02 13:42 | NUR ---
pt eating lunch
[2019-04-02] MEDS ORDERED: NICOTINE 14MG/24 HR PATCH.TD24 ONE (13:50)
[2019-04-02] MEDS ORDERED: LORazepam 0.5MG TABLET ONE ×2 (13:51→21:16)
[2019-04-02] MEDS: LORazepam 1MG TABLET PO PRN (14:13)
--- NOTE | 2019-04-02 14:13 | NUR ---
Pt vomited up lunch. Per sitter, it was induced. RNdid not visualize the event. Pt states it was not induced, and she wants more food. Stated she needs to stop eating right now if she is vomiting. Medicated with Ativan and nicotine patch. Will cont to monitor
--- NOTE | 2019-04-02 14:55 | NUR ---
PT IN ROOM WITH BLANKET WRAPPED AROUND HER THROAT TWISTING IT TIGHT BLANKET AND SHEET REMOVED FROM THE ROOM
--- NOTE | 2019-04-02 15:07 | NUR ---
LUNCH RN: PT REFUSING TO STAY IN ROOM, CONSTANTLY WALKING TO BATHROOM. PT WAS FOUND WRAPPING BLANKET AROUND HER NECK, ALL LINENS REMOVED FOR PT SAFETY. PT REQUESTING ADDITIONAL FOOD, INFORMED PT DINNER TRAYS WOULD BE ARRIVING A BIT LATER. SITTER IN CHO FOR CONTINUOUS MONITORING, FLUIDS AT BEDSIDE. PT CHOOSING TO LAY ON FLOOR INSTEAD OF IN BED AT THIS TIME. WILL CONTINUE TO MONITOR
--- NOTE | 2019-04-02 15:47 | NUR ---
Called Dr. Solano and left message to inform that pt is requesting something for acid reflux, also wanted to clarify IV order because pt has no IV medications ordered. Awaiting return call.
--- NOTE | 2019-04-02 15:47 | NUR ---
PACKET FAXED TO [facility] AND [facility]
--- NOTE | 2019-04-02 15:55 | NUR ---
Report to OVIDIO Márquez Pt moved, aware page is out to Dr. Solano
--- NOTE | 2019-04-02 16:06 | NUR ---
REPORT RECEIVED FROM OVIDIO MENDIOLA PATIENT TRANSFERRED TO ER ROOM 39 PLAN TO OBTAIN ORDER FROM DR. CAMPA TO D/C IV & OBTAIN GI COCKTAIL ORDER PATIENT PER OUR EXAM DOES NOT NEED AN IV BASED ON HER EXAM/HISTORY OF MANIPULATIVE BEHAVIOR AND IS REPORTING REFLUX LIKE SYMPTOMS. PATIENT ASKING FOR FOOD/PAIN MEDICINE. GOLD LEAF LABORER DEFERRED DISCUSSION WITH PENDING ROOM SECURED W/ PSYCHIATRIC PRECAUTIONS 1:2 SITTER W/IN EYELINE
--- NOTE | 2019-04-02 16:20 | NUR ---
Received call from Dr. Solano. Verbal order for GI cocktail 45 ML PO one time, verbal order for Protonix 40 mg PO daily starting tomorrow, and order to d/c IV insert order. Willi NOLAN informed.
[2019-04-02] MEDS ORDERED: MAALOX/HYOSCYAMINE/LIDOCAINE 45 ML BTL ONE (16:24)
[2019-04-02] MEDS ORDERED: PANTOPRAZOLE 20MG TABLET ONE (16:24)
[2019-04-02] MEDS ORDERED: MAALOX/HYOSCYAMINE/LIDOCAINE 45 ML BTL PO ONE (16:30)
[2019-04-02] MEDS: PANTOPROZOLE 40MG TABLET PO SCH (16:39)
--- NOTE | 2019-04-02 17:17 | NUR ---
FROM 1630 TO PRESENT PATIENT DEMANDING SHE EAT NOW OR ELSE SHE IS GOING TO CALL HER PRISON GUARD SUPERVISOR." LAYAWAY CLERK EXPLAINED SHE WAS REPORTED TO HAVE RECENTLY VOMITED AND LAYAWAY CLERK WOULD LIKE TO GIVE GI COCKTAIL/PROTONIX 15-20 MINUTES TO WORK. PATIENT DISAGREEABLE, CRYING/DEMANDING A PHONE TO CALL [facility] PRISON GUARD SUPERVISOR. UNABLE TO BE VERBALLY REDIRECTED. SW TO BEDSIDE
[2019-04-02] MEDS ORDERED: SUCR1TAB TP (17:36)
[2019-04-02] MEDS ORDERED: QUET25TA70 PO (17:36)
--- NOTE | 2019-04-02 17:37 | NUR ---
VOICEMAIL LEFT WITH DR. CAMPA W/ CALL BACK NUMBER OF [id number]. CALLED TO OBTAIN PRN FOR AGITATION PATIENT INTERMITTENTLY RESTLESS/ANXIOUS/DEMANDING. PATIENT CURRENTLY LYING ON THE FLOOR-REFUSING TO GET UP INTO HOSPITAL BED. SHEET PLACED ON GROUND FOR CLEANLINESS. PATIENT PROVIDED WITH DINNER TRAY- ATE ENTIRE DINNER W/ LITTLE REPORTED DIFFICULTY. REPORTS "MY STOMACH FEELS A LITTLE BETTER." ROOM REMAINS SECURED W/ PSYCHIATRIC PRECAUTIONS 1:1 SITTER AT DOORWAY W/IN DIRECT EYELINE
--- NOTE | 2019-04-02 18:21 | NUR ---
DENIED BY [facility]
--- NOTE | 2019-04-02 18:40 | NUR ---
PATIENT EXHIBITING SPLITTING BEHAVIOR WELL DEFIANT BEHAVIOR (SHE RIPPED UP HER MEAL TRAY/MILK CARTON INTO MANY PIECES AND STUFFED IT UNDER THE DOOR/STRETCHER.) DR. STEARNS CONTACTED AND MADE AWARE OF BEHAVIOR-VERBAL ORDER FOR ATIVAN 1MG PO X1 RECEIVED ROOM REMAINS SECURED WITH PSYCH PRECAUTION SITTER WITH DIRECT LINE OF SIGHT
[2019-04-02] MEDS ORDERED: LORazepam 0.5MG TABLET PO ONE (19:00)
--- NOTE | 2019-04-02 19:08 | NUR ---
REPORT TO ELENA NOLAN
--- NOTE | 2019-04-02 19:45 | NUR ---
PT ASKED IF SHE COULD CALL [facility]. THIS NURSE RESPONDED WITH UNCERTAIN IF YOU CAN MAKE A CALL BUT I WILL FIND OUT. PT THEN IGNORED THIS NURSE WHEN ASKED QUESTIONS AND STARTED LAYING ON THE FLOOR CRYING. UPDATED PT THAT SHE CAN CALL HER [facility] WHEN SHE CALMS DOWN AND CAN BE RESPECTFUL TO STAFF.
--- NOTE | 2019-04-02 20:10 | NUR ---
PT CALLED [facility] WITH SITTER AT SIDE. FOOD TRAY GIVEN. PT BACK IN BED. SITTER AT BEDSIDE.
--- NOTE | 2019-04-02 21:37 | NUR ---
VSS. PT MEDICATED PER EMAR WITH ATIVAN 1MG PO. ASKING IF DOCTOR WILL COME LOOK AT HER EARS BECAUSE "THEY FEEL FULL."
--- NOTE | 2019-04-02 22:50 | NUR ---
PT LAYING IN BED. SITTER AT BEDSIDE.
--- NOTE | 2019-04-02 23:56 | NUR ---
PT RESTING IN BED WATCHING TV. SITTER AT BEDSIDE.
--- NOTE | 2019-04-03 00:44 | NUR ---
PT UP TO BATHROOM AND BACK TO BED. SITTER AT BEDSIDE.
--- NOTE | 2019-04-03 02:29 | NUR ---
PT SLEEPING WITH SITTER AT BEDSIDE.
--- NOTE | 2019-04-03 03:35 | NUR ---
PT SLEEPING. SITTER AT BEDSIDE.
--- NOTE | 2019-04-03 04:28 | NUR ---
PT REMAINS SLEEPING, ABLE TO REPOSITION SELF. SITTER AT BEDSIDE.
[2019-04-03] MEDS ORDERED: PANTOPROZOLE 40MG TABLET PO SCH (06:00)
[2019-04-03] MEDS: PANTOPROZOLE 40MG TABLET PO SCH (06:00)
[2019-04-03] MEDS ORDERED: PANTOPRAZOLE 20MG TABLET ONE (06:18)
--- NOTE | 2019-04-03 06:22 | NUR ---
PT UP TO BATHROOM AND BACK TO BED. SITTER AT BEDSIDE.
--- NOTE | 2019-04-03 06:57 | NUR ---
REPORT GIVEN TO ELISABET NOLAN.
--- NOTE | 2019-04-03 06:58 | NUR ---
report received from Adamaris. pt calmly resting on hospital bed, NAD with equal chest rise/fall, no needs at this time, pt remains in safe environment, sitter in view.
--- NOTE | 2019-04-03 08:01 | NUR ---
pt continues to calmly rest on hospital bed, NAD with equal chest rise/fall, no needs at this time, pt remains in safe environment, sitter in view. Addendum: 04/03/19 at 0803 by LEONIE pt continues to calmly rest on hospital bed, watching TV, responds approp to staff, NAD, comfort measures provided, pt remains in safe environment, sitter in view.
--- NOTE | 2019-04-03 08:46 | NUR ---
breakfast tray given
--- NOTE | 2019-04-03 09:00 | NUR ---
pt calmly resting on hospital bed, ate 100% of breakfast, tearful at times but responds approp to staff, NAD, comfort measures provided, pt remains in safe environment, sitter in view.
[2019-04-03] MEDS: DULOXETINE 30 MG CAPSULE.DR PO SCH (09:32)
--- NOTE | 2019-04-03 10:02 | NUR ---
pt continues to calmly rest on hospital bed, watching TV, NAD with equal chest rise/fall, no needs at this time, pt remains in safe environment, sitter in view.
--- NOTE | 2019-04-03 11:04 | NUR ---
pt calmly laying on hospital bed, watching TV, responds approp to staff, NAD, comfort measures provided, pt remains in safe environment, sitter in view.
--- NOTE | 2019-04-03 12:25 | NUR ---
lunch tray given
--- NOTE | 2019-04-03 13:05 | NUR ---
pt calmly laying on hospital bed, watching TV, responds approp to staff, NAD, comfort measures provided, pt remains in safe environment, sitter in view.
[2019-04-03] MEDS ORDERED: NICOTINE 14MG/24 HR PATCH.TD24 ONE (14:13)
[2019-04-03] MEDS: NICOTINE 14MG/24 HR PATCH.TD24 TD SCH ×2 (14:14→14:15)
--- NOTE | 2019-04-03 15:03 | NUR ---
pt calmly laying on hospital bed, watching TV, responds approp to staff, NAD, comfort measures provided, pt remains in safe environment, sitter in view.
--- NOTE | 2019-04-03 15:40 | NUR ---
PT DINNER MEAL TRAY ORDERED, PT RESTING IN BED WITH EQUAL AND ULABORED RESPIRATIONS AND GOOD CAP REFILL. NADN. SITTER OUTSIDE ROOM FOR CONTINOUS MONTIORING.
--- NOTE | 2019-04-03 16:00 | NUR ---
pt continues to calmly rest on hospital bed, watching TV, responds approp to staff, NAD, comfort measures provided, pt remains in safe environment, sitter in view.
--- NOTE | 2019-04-03 16:35 | NUR ---
dinner tray given
[2019-04-03] MEDS ORDERED: BENZONATATE 100 MG CAPSULE PO ONE ×2 (16:37→20:30)
--- NOTE | 2019-04-03 17:05 | NUR ---
pt calmly laying on hospital bed, responds approp to staff, NAD, comfort measures provided, pt remains in safe environment, sitter in view. RIVAS (Luba) at BS
[2019-04-03] MEDS ORDERED: LORazepam 0.5MG TABLET ONE ×2 (17:27→22:16)
[2019-04-03] MEDS ORDERED: BENZONATATE 100 MG CAPSULE ONE ×2 (17:27→20:36)
[2019-04-03] MEDS: LORazepam 1MG TABLET PO PRN ×2 (17:29→22:21)
--- NOTE | 2019-04-03 18:05 | NUR ---
pt continues to calmly rest on hospital bed, responds approp to staff, NAD, comfort measures provided, pt remains in safe environment, sitter in view.
--- NOTE | 2019-04-03 18:56 | NUR ---
report given to Stacy
--- NOTE | 2019-04-03 19:11 | NUR ---
RECEIVED REPORT FROM ONIEL NOLAN. PT RESTING IN BED COUGHING. PT MEDICATED EARLIER FOR COUGH. SITTER AT DOOR. WILL CONTINUE TO MONITOR.
--- NOTE | 2019-04-03 20:52 | NUR ---
PT RESTING IN BED COUGHING FREQUENTLY AND NON-PRODUCTIVELY. ORDER RECEIVED FOR COUGH MEDS, PT REFUSED. STATED SHE IS COUGHING BECAUSE HER STOMACH IS EMPTY SHE HAS GERD SO WHEN HER STOMACH IS EMTPY, ALL THE ACID COMES UP AND MAKES HER COUGH. PT HAS WATER AT BEDSIDE. PT MADE AWARE MEAL TRAYS ARE NOT AVAILABLE THROUGHOUT THE NIGHT. ASKED IF PT IS STILL SI, PT STATED, ""I WAS NEVER SI, I JUST WANTED TO BE MONITORED TO MAKE SURE I DIDN'T FROM WHAT EVER THIS ILLNESS IS". PT ASKED IF SHE HAD A SUICIDE PLAN, PT STATED, "NO, I NEVER DID". SITTER AT DOOR. WILL CONTINUE TO MONITOR.
--- NOTE | 2019-04-03 21:13 | NUR ---
PT RESTING CALMLY IN BED. SITTER AT DOOR.
--- NOTE | 2019-04-03 22:22 | NUR ---
PT ASKING FOR SLEEP AID. PT MEDICATED WITH ORDERED MEDS. WILL CONTINUE TO MONITOR. SITTER AT DOOR.
--- NOTE | 2019-04-03 23:17 | NUR ---
pt resting in bed. pt coughing at times. sitter at door for frequent obs.
--- NOTE | 2019-04-04 00:54 | NUR ---
PT RESTING CALMLY WITH EYES CLOSED. SITTER AT DOOR. NO STATED NEEDS BY PT.
--- NOTE | 2019-04-04 01:16 | NUR ---
PT RESTING CALMLY IN BED. SITTER AT DOOR.
--- NOTE | 2019-04-04 02:19 | NUR ---
PT CONTINUES TO REST IN BED WITH EYES CLOSED. SITTER AT DOOR.
--- NOTE | 2019-04-04 03:19 | NUR ---
PT RESTING IN GURNEY CALMLY AND WITH EYES CLOSED RESP EVEN AND NON LABORED. NO STATED NEEDS AT THIS TIME. SITTER ON WATCH OF PT FREQUENTLY
--- NOTE | 2019-04-04 04:05 | NUR ---
pt resting in GURNEY CALMLY AND WITH EYES CLOSED. NO STATED NEEDS AT THIS TIME. SITTER ON WATCH OF PT FREQUENTLY
--- NOTE | 2019-04-04 05:45 | NUR ---
PT RESTING CALMLY IN BED. NO STATED NEEDS. SITTER AT DOOR.
--- NOTE | 2019-04-04 06:30 | NUR ---
PT GIVEN CRACKERS THIS AM PER HER REQUEST. BREAKFAST HAS BEEN ORDERED. SITTER AT DOOR.
--- NOTE | 2019-04-04 07:04 | NUR ---
[facility] pt calmly resting on hospital bed, NAD with equal chest rise/fall, no needs at this time, pt remains in safe environment, sitter in view.
[2019-04-04] MEDS ORDERED: PANTOPRAZOLE 20MG TABLET ONE (07:24)
--- NOTE | 2019-04-04 08:00 | NUR ---
pt calmly resting on hospital bed with eyes closed, responds approp to staff, NAD, comfort measures provided, pt remains in safe environment, sitter in view.
[2019-04-04] MEDS: DULOXETINE 30 MG CAPSULE.DR PO SCH (08:30)
[2019-04-04] MEDS: PANTOPROZOLE 40MG TABLET PO SCH (08:31)
[2019-04-04] MEDS ORDERED: BENZONATATE 100 MG CAPSULE ONE (08:32)
--- NOTE | 2019-04-04 08:35 | NUR ---
breakfast tray given
--- NOTE | 2019-04-04 09:05 | NUR ---
pt continues to calmly sit on hospital bed awake & comfortable, tearful at times but responds approp to staff, NAD, comfort measures provided, pt remains in safe environment, sitter in view.
--- NOTE | 2019-04-04 10:00 | NUR ---
pt continues to sit on hospital bed awake & comfortable, paces & tearful at times but responds approp to staff, NAD, comfort measures provided, pt remains in safe environment, sitter in view.
--- NOTE | 2019-04-04 11:03 | NUR ---
pt sitting on hospital bed awake & comfortable, occas sits on floor or paces but responds approp to staff, NAD, comfort measures provided, pt remains in safe environment, sitter in view.
--- NOTE | 2019-04-04 11:08 | NUR ---
SW (Luba) at BS
--- NOTE | 2019-04-04 11:28 | NUR ---
special procedure technologist at
--- NOTE | 2019-04-04 12:03 | NUR ---
pt changes from sitting on hospital bed awake & comfortable to occas sittin on floor or pacing but responds approp to staff, NAD, comfort measures provided, pt remains in safe environment, sitter in view.
[2019-04-04] MEDS: NICOTINE 14MG/24 HR PATCH.TD24 TD SCH (12:12)
[2019-04-04] MEDS ORDERED: LORazepam 0.5MG TABLET ONE (12:14)
[2019-04-04] MEDS: LORazepam 1MG TABLET PO PRN (12:20)
--- NOTE | 2019-04-04 12:32 | NUR ---
lunch tray given
--- NOTE | 2019-04-04 13:08 | NUR ---
Break RN: Pt awake, watching T.V., all security measures IP, sitter outside doorway.
--- NOTE | 2019-04-04 14:02 | NUR ---
pt frequently changes position in room, awake, mostly calm & comfortable, responds approp to staff, NAD, comfort measures provided, pt remains in safe environment, sitter in view.
--- NOTE | 2019-04-04 15:00 | NUR ---
pt resting on hospital bed with eyes closed, responds approp to staff, NAD, comfort measures provided, pt remains in safe environment, sitter in view.
--- NOTE | 2019-04-04 16:01 | NUR ---
pt continues resting on hospital bed with eyes closed, responds approp to staff, NAD, comfort measures provided, pt remains in safe environment, sitter in view.
[2019-04-04 16:54] VITALS: BP 113/82
--- NOTE | 2019-04-04 17:00 | NUR ---
pt sitting on hospital bed awake & comfortable, given dinner tray, watching TV, responds approp to staff, NAD, comfort measures provided, pt remains in safe environment, sitter in view.
--- NOTE | 2019-04-04 17:49 | NUR ---
report given to Thea NOLAN
--- NOTE | 2019-04-04 17:56 | NUR ---
REPORT FROM ONIEL RN, PT RESTING IN [facility] PT TO GO TO 3E @1800
--- NOTE | 2019-04-04 18:11 | NUR ---
REPORT TO CRYSTAL NOLAN ON 3N
== END 2019-04-04 18:33 ==
LOC: ED 08:41 → EDIP 12:38 → UNDOADMIN 12:38 → ED 04-04 18:33
DX: R45.851 Suicidal ideations (principal); Z00.00 Encounter for general adult medical examination without abnormal findings; K21.9 Gastro-esophageal reflux disease without esophagitis; F32.9 Major depressive disorder, single episode, unspecified; F17.200 Nicotine dependence, unspecified, uncomplicated
CPT/HCPCS: 36415; 76830; 80048; 80307; 82040; 84703; 85025; 93005

== ENCOUNTER 2019-04-04 17:14 | Inpatient (IN) | payer MEDICAID ==
[~2019-04-04] VITALS: Ht 170.2 cm; Wt 109.6 kg
[~2019-04-04 17:14] MED LIST changes: +QUET25TA70 PO; +SUCR1TAB TP
[2019-04-04] MEDS ORDERED: BISACODYL 10 MG SUPP PR PRN (18:00)
[2019-04-04] MEDS ORDERED: DOCUSATE 100 MG CAPSULE PO PRN (18:00)
[2019-04-04 19:24] VITALS: BP 116/82
[2019-04-04 19:40] VITALS: BP 127/81
[2019-04-04 20:36] VITALS: BP 117/83
[2019-04-04] MEDS: QUETIAPINE 25MG TABLET PO PRN (21:33)
[2019-04-04] MEDS: POLYETHYLENE GLYCOL 17 GM PACKET PO PRN (21:51)
[2019-04-05 07:08] LABS: ANION GAP 7 mmol/L (5-15); CALCIUM 8.7 mg/dL (8.5-10.1); CHLORIDE 108 mmol/L (98-107)
[2019-04-05 07:13] LABS: BASOPHILS # (AUTO) 0.04 x10^3/uL (0-0.1); BASOPHILS % (AUTO) 0 % (0-1); EOSINOPHILS # (AUTO) 0.16 x10^3/uL (0-0.4); EOSINOPHILS % (AUTO) 2 % (1-7); LYMPHOCYTES # (AUTO) 2.06 x10^3/uL (1-3.4); LYMPHOCYTES % (AUTO) 24 % (22-44); MD NO; MEAN CORPUSCULAR HEMOGLOBIN 25.9 pg (27.0-34.8); MEAN CORPUSCULAR HGB CONC 31.3 g/dL (32.4-35.8); MEAN CORPUSCULAR VOLUME 82.7 fL (80-100); MEAN PLATELET VOLUME 7.5 fL (7.4-10.4); MONOCYTES # (AUTO) 0.54 x10^3/uL (0.2-0.8); MONOCYTES % (AUTO) 6 % (2-9); NEUTROPHILS # (AUTO) 5.96 x10^3/uL (1.8-6.8); NEUTROPHILS % (AUTO) 68 % (42-75); PLATELET COUNT 470 x10^3/uL (130-400); RED BLOOD COUNT 4.77 x10^6/uL (3.82-5.3); RED CELL DISTRIBUTION WIDTH 15.7 % (9.6-15.2)
[2019-04-05 07:20] VITALS: BP 117/90
[2019-04-05 07:32] LABS: ALANINE AMINOTRANSFERASE 37 U/L (12-78); ALKALINE PHOSPHATASE 114 U/L (45-117); BILIRUBIN,TOTAL 0.3 mg/dL (0.2-1.0); CHOL/HDL RATIO 6.5; CHOLESTEROL, TOTAL 188 mg/dL (140-239); CREATININE 0.75 mg/dL (0.55-1.02); FREE T4 (FREE THYROXINE) 1.13 ng/dL (0.76-1.46); HDL CHOL % 15 % (28-40); HDL CHOLESTEROL (DIRECT) 29 mg/dL (40-60); LDL CHOLESTEROL,CALCULATED 115 mg/dL (54-169); TOTAL PROTEIN 6.8 g/dL (6.4-8.2); TRIGLYCERIDES 220 mg/dL (50-200); VLDL CHOLESTEROL 44 mg/dL (0-25)
[2019-04-05] MEDS ORDERED: ONDANSETRON ODT 4 MG PO PRN (09:30)
[2019-04-05] MEDS: PANTOPROZOLE 40MG TABLET PO SCH (09:30)
[2019-04-05] MEDS ORDERED: ALUMINUM/MAG/SIMETHICONE 30 ML UDC PO PRN (09:30)
[2019-04-05] MEDS: SUCRALFATE 1 GM TABLET PO SCH ×3 (11:20→20:27)
[2019-04-05] MEDS ORDERED: ESCITALOPRAM 10MG TABLET PO STA (17:00)
[2019-04-05] MEDS ORDERED: ESCITALOPRAM 10MG TABLET ONE (17:14)
[2019-04-05] MEDS: CITALOPRAM 20 MG TABLET PO SCH (17:31)
[2019-04-05 19:55] VITALS: BP 138/98
[2019-04-05] MEDS: QUETIAPINE 25MG TABLET PO PRN (20:27)
[2019-04-06] MEDS: PANTOPROZOLE 40MG TABLET PO SCH (06:05)
[2019-04-06 07:25] VITALS: BP 119/84
[2019-04-06] MEDS ORDERED: MAALOX/HYOSCYAMINE/LIDOCAINE 45 ML BTL PO ONE (07:30)
[2019-04-06] MEDS: SUCRALFATE 1 GM TABLET PO SCH ×4 (07:53→19:47)
[2019-04-06] MEDS: CITALOPRAM 20 MG TABLET PO SCH (09:51)
[2019-04-06] MEDS ORDERED: CITALOPRAM 20 MG TABLET PO ONE ×2 (12:30→13:00)
[2019-04-06] MEDS: LORazepam 0.5MG TABLET PO PRN ×2 (13:13→19:48)
[2019-04-06] MEDS: POLYETHYLENE GLYCOL 17 GM PACKET PO PRN (13:13)
[2019-04-06] MEDS ORDERED: BISACODYL 10 MG SUPP PR ONE (16:00)
[2019-04-06] MEDS: DOCUSATE 100 MG CAPSULE PO SCH (19:47)
[2019-04-06] MEDS: QUETIAPINE 25MG TABLET PO PRN (19:47)
[2019-04-06 19:55] VITALS: BP 138/84
[2019-04-07] MEDS: PANTOPROZOLE 40MG TABLET PO SCH (06:05)
[2019-04-07 07:20] VITALS: BP 101/73
[2019-04-07] MEDS: DOCUSATE 100 MG CAPSULE PO SCH ×2 (08:05→20:30)
[2019-04-07] MEDS: SUCRALFATE 1 GM TABLET PO SCH ×4 (08:05→20:30)
[2019-04-07] MEDS: LORazepam 0.5MG TABLET PO PRN (08:40)
[2019-04-07 18:33] LABS: MICROSCOPIC AUTO
[2019-04-07 18:40] LABS: CULTURE INDICATED? YES
[2019-04-07 19:30] VITALS: BP 140/91
[2019-04-07] MEDS: QUETIAPINE 25MG TABLET PO PRN (20:30)
[2019-04-08] MEDS: PANTOPROZOLE 40MG TABLET PO SCH (05:49)
[2019-04-08 07:20] VITALS: BP 113/78
[2019-04-08] MEDS: SUCRALFATE 1 GM TABLET PO SCH ×4 (08:42→20:25)
[2019-04-08] MEDS: LORazepam 0.5MG TABLET PO PRN ×2 (08:42→18:31)
[2019-04-08] MEDS: DOCUSATE 100 MG CAPSULE PO SCH ×2 (08:42→20:25)
[2019-04-08 19:38] VITALS: BP 109/73
[2019-04-08] MEDS: QUETIAPINE 25MG TABLET PO PRN (20:25)
[2019-04-09] MEDS: PANTOPROZOLE 40MG TABLET PO SCH (06:09)
[2019-04-09 07:25] VITALS: BP 110/77
[2019-04-09] MEDS: SUCRALFATE 1 GM TABLET PO SCH ×4 (07:34→20:11)
[2019-04-09] MEDS: LORazepam 0.5MG TABLET PO PRN (08:54)
[2019-04-09] MEDS: DOCUSATE 100 MG CAPSULE PO SCH ×2 (08:54→20:11)
[2019-04-09] MEDS: MAALOX/HYOSCYAMINE/LIDOCAINE 45 ML BTL PO PRN (09:18)
[2019-04-09 19:37] VITALS: BP 120/87
[2019-04-09] MEDS: QUETIAPINE 25MG TABLET PO PRN (21:09)
[2019-04-10] MEDS: PANTOPROZOLE 40MG TABLET PO SCH (05:59)
[2019-04-10 07:38] VITALS: BP 119/80
[2019-04-10] MEDS: LORazepam 0.5MG TABLET PO PRN ×2 (07:42→14:59)
[2019-04-10] MEDS: SUCRALFATE 1 GM TABLET PO SCH ×4 (07:42→20:18)
[2019-04-10] MEDS: DOCUSATE 100 MG CAPSULE PO SCH ×2 (08:14→20:18)
[2019-04-10] MEDS: ESCITALOPRAM 10MG TABLET PO SCH (12:42)
[2019-04-10 19:18] VITALS: BP 129/83
[2019-04-10] MEDS: QUETIAPINE 25MG TABLET PO PRN (20:18)
[2019-04-11] MEDS: PANTOPROZOLE 40MG TABLET PO SCH (05:46)
[2019-04-11 07:18] VITALS: BP 108/72
[2019-04-11] MEDS: SUCRALFATE 1 GM TABLET PO SCH ×4 (08:22→20:03)
[2019-04-11] MEDS: DOCUSATE 100 MG CAPSULE PO SCH ×2 (08:22→20:03)
[2019-04-11] MEDS: LORazepam 0.5MG TABLET PO PRN ×2 (08:22→14:57)
[2019-04-11] MEDS: ESCITALOPRAM 10MG TABLET PO SCH (08:22)
[2019-04-11] MEDS: MAALOX/HYOSCYAMINE/LIDOCAINE 45 ML BTL PO PRN (09:09)
[2019-04-11 19:24] VITALS: BP 125/81
[2019-04-11] MEDS: QUETIAPINE 25MG TABLET PO PRN (20:03)
[2019-04-12] MEDS: PANTOPROZOLE 40MG TABLET PO SCH (06:09)
[2019-04-12] MEDS: LORazepam 0.5MG TABLET PO PRN ×2 (06:13→14:22)
[2019-04-12] MEDS: SUCRALFATE 1 GM TABLET PO SCH ×4 (07:32→19:58)
[2019-04-12 07:33] VITALS: BP 100/75
[2019-04-12] MEDS: DOCUSATE 100 MG CAPSULE PO SCH ×2 (09:00→19:58)
[2019-04-12] MEDS: ESCITALOPRAM 10MG TABLET PO SCH (09:03)
[2019-04-12 19:51] VITALS: BP 106/54
[2019-04-12] MEDS: QUETIAPINE 25MG TABLET PO PRN (19:55)
[2019-04-13] MEDS: PANTOPROZOLE 40MG TABLET PO SCH (06:09)
[2019-04-13 07:10] VITALS: BP 107/73
[2019-04-13] MEDS: SUCRALFATE 1 GM TABLET PO SCH ×4 (08:17→20:34)
[2019-04-13] MEDS: DOCUSATE 100 MG CAPSULE PO SCH ×2 (08:17→20:34)
[2019-04-13] MEDS: ESCITALOPRAM 10MG TABLET PO SCH (08:17)
[2019-04-13] MEDS: LORazepam 0.5MG TABLET PO PRN (10:42)
[2019-04-13 20:00] VITALS: BP 128/76
[2019-04-13] MEDS: QUETIAPINE 25MG TABLET PO PRN (20:24)
[2019-04-14] MEDS: PANTOPROZOLE 40MG TABLET PO SCH ×2 (06:00→06:12)
[2019-04-14 07:39] VITALS: BP 113/76
[2019-04-14] MEDS: SUCRALFATE 1 GM TABLET PO SCH ×4 (08:12→21:00)
[2019-04-14] MEDS: ESCITALOPRAM 10MG TABLET PO SCH (08:26)
[2019-04-14] MEDS: LORazepam 0.5MG TABLET PO PRN (08:26)
[2019-04-14] MEDS: DOCUSATE 100 MG CAPSULE PO SCH ×2 (08:27→21:00)
[2019-04-14 19:57] VITALS: BP 116/70
[2019-04-14] MEDS: QUETIAPINE 25MG TABLET PO PRN (20:07)
[2019-04-15] MEDS: SUCRALFATE 1 GM TABLET PO SCH ×4 (06:00→20:11)
[2019-04-15] MEDS: PANTOPROZOLE 40MG TABLET PO SCH (06:13)
[2019-04-15 07:29] VITALS: BP 104/72
[2019-04-15] MEDS: LORazepam 0.5MG TABLET PO PRN (08:34)
[2019-04-15] MEDS: DOCUSATE 100 MG CAPSULE PO SCH ×2 (08:34→20:11)
[2019-04-15] MEDS: ESCITALOPRAM 10MG TABLET PO SCH (08:34)
[2019-04-15] MEDS ORDERED: QUET25TA7 PO (13:17)
[2019-04-15] MEDS ORDERED: ESCI10TA PO (13:17)
[2019-04-15] MEDS ORDERED: DOCU-131 PO (13:17)
[2019-04-15] MEDS ORDERED: PANT40TA5 PO (13:17)
[2019-04-15] MEDS ORDERED: SUCR1TAB33 PO (13:17)
[2019-04-15 19:58] VITALS: BP 119/80
[2019-04-15] MEDS: QUETIAPINE 25MG TABLET PO PRN (20:11)
[2019-04-16] MEDS: LORazepam 0.5MG TABLET PO PRN (05:54)
[2019-04-16] MEDS: PANTOPROZOLE 40MG TABLET PO SCH (05:58)
[2019-04-16] MEDS: SUCRALFATE 1 GM TABLET PO SCH (07:00)
[2019-04-16 07:27] VITALS: BP 118/81
[2019-04-16] MEDS: DOCUSATE 100 MG CAPSULE PO SCH ×2 (08:36→08:39)
[2019-04-16] MEDS: ESCITALOPRAM 10MG TABLET PO SCH (08:36)
== END 2019-04-16 09:10 | disposition home or self-care (01) | DRG 885 ==
LOC: 3E 18:40
PROVIDERS: ADMIT Psychiatry & Neurology Psychosomatic Medicine; ATTEND Psychiatry & Neurology Psychosomatic Medicine
DX: F33.2 Major depressive disorder, recurrent severe without psychotic features (principal); E78.1 Pure hyperglyceridemia; F10.20 Alcohol dependence, uncomplicated; Y90.9 Presence of alcohol in blood, level not specified; F15.21 Other stimulant dependence, in remission; F17.200 Nicotine dependence, unspecified, uncomplicated; F41.9 Anxiety disorder, unspecified; G89.29 Other chronic pain; K21.9 Gastro-esophageal reflux disease without esophagitis; K22.70 Barrett's esophagus without dysplasia; K59.00 Constipation, unspecified; Z86.59 Personal history of other mental and behavioral disorders; Z98.891 History of uterine scar from previous surgery; Z83.3 Family history of diabetes mellitus; Z82.5 Family history of asthma and other chronic lower respiratory diseases
CPT/HCPCS: 36415; 74220; 80053; 80061; 81001; 82140; 82607; 84439; 84443; 85025; 86592; 87086; 93005; 99285; 92523-GN

== ENCOUNTER 2019-04-21 08:13 | Emergency (ER) | payer MEDICAID ==
[~2019-04-21] VITALS: Ht 170.2 cm; Wt 111.2 kg
[~2019-04-21 08:13] MED LIST changes: +DOCU-131 PO; +ESCI10TA PO; +PANT40TA5 PO; +QUET25TA7 PO; +SUCR1TAB33 PO
--- NOTE | 2019-04-21 08:17 | NUR ---
SERVICE EMPLOYEE. NO ANSWER X1 TO SABINE AT THIS TIME
--- NOTE | 2019-04-21 08:31 | NUR ---
AUDIOLOGY DIRECTOR. NO ANSWER X2 TO SABINE AT THIS TIME.
[2019-04-21 08:43] VITALS: BP 120/71
--- NOTE | 2019-04-21 08:45 | NUR ---
POULTRY HATCHERY LABORER. PT BACK IN LOBBY AT THIS TIME, TRIAGE COMPLETED. DENIES SI OR HI. PT STATES "I WASN'T READY TO LEAVE TO [facility], I NEEDED TO BE HERE LONGER FOR MORE HELP ADJUSTING TO MY MEDS." PT AMBULATED TO ROOM 15 WITH STEADY GAIT. REPORT AND CARE TO RASHAD NOLAN.
--- NOTE | 2019-04-21 09:03 | NUR ---
Pt not in room when this RN entered to assess pt. Pt seen at discharge desk, states "I am leaving because they're not going to admit me." Pt A&O x4, ambulatory with steady gait, fully dressed. Pt refusing to wait for dc paperwork.
[2019-04-21] MEDS ORDERED: ESCI5TAB7 PO (15:14)
== END 2019-04-21 09:07 | disposition left against medical advice (07) ==
LOC: ED 09:01
DX: F41.1 Generalized anxiety disorder (principal); F32.9 Major depressive disorder, single episode, unspecified; Z72.9 Problem related to lifestyle, unspecified; Z91.14 Patient's other noncompliance with medication regimen
CPT/HCPCS: 99284

== ENCOUNTER 2019-04-21 11:51 | Emergency (ER) | payer MEDICAID ==
[~2019-04-21] VITALS: Ht 170.2 cm; Wt 111.3 kg
--- NOTE | 2019-04-21 12:00 | NUR ---
PRODUCT DEMONSTRATOR. NO ANSWER X1 TO TRIAGE AT THIS TIME.
--- NOTE | 2019-04-21 12:10 | NUR ---
PORCELAIN MIXER. NO ANSWER TO TRIAGE X2 AT THIS TIME.
--- NOTE | 2019-04-21 12:20 | NUR ---
SUCCESSFACTORS CONSULTANT. NO ANSWERX3 TO SABINE
[2019-04-21 13:05] LABS: MEAN CORPUSCULAR HEMOGLOBIN 25.2 pg (27.0-34.8); MEAN CORPUSCULAR HGB CONC 31.3 g/dL (32.4-35.8); MEAN CORPUSCULAR VOLUME 80.5 fL (80-100); MEAN PLATELET VOLUME 7.6 fL (7.4-10.4); PLATELET COUNT 466 x10^3/uL (130-400); RED BLOOD COUNT 4.89 x10^6/uL (3.82-5.3); RED CELL DISTRIBUTION WIDTH 16.2 % (9.6-15.2)
[2019-04-21 13:12] LABS: ALBUMIN 3.3 g/dL (3.4-5.0); ANION GAP 8 mmol/L (5-15); CALCIUM 8.5 mg/dL (8.5-10.1); CHLORIDE 105 mmol/L (98-107)
[2019-04-21 13:17] LABS: ALANINE AMINOTRANSFERASE 32 U/L (12-78); ALKALINE PHOSPHATASE 122 U/L (45-117); BILIRUBIN,TOTAL 0.3 mg/dL (0.2-1.0); CREATININE 0.73 mg/dL (0.55-1.02); SALICYLATE LEVEL 2.9 mg/dL (2.8-20.0); TOTAL PROTEIN 7.7 g/dL (6.4-8.2)
[2019-04-21 13:23] LABS: BAND#(MANUAL) 0.88 x10^3/uL; BANDS%(MANUAL) 6 % (0-7); LYMPH#(MANUAL) 1.75 x10^3/uL (1-3.4); LYMPHS% (MANUAL) 12 % (22-44); MD YES; MONOS#(MANUAL) 0.29 x10^3/uL (0.3-2.7); MONOS% (MANUAL) 2 % (2-9); SEG#(MANUAL) 11.68 x10^3/uL (1.8-6.8); SEGS% (MANUAL) 80 % (42-75)
[2019-04-21 13:24] LABS: <PLATELET ESTIMATE> INCREASED; <PLT MORPHOLOGY> NORMAL PLT MORPH; <RBC MORPHOLOGY> NORMAL
--- NOTE | 2019-04-21 13:27 | NUR ---
The pt is A&O x4, she states that her anxiety is a 10/10, she is tearful and states that she was not feeling safe with herself and had her daughter bring her in. The pt states that she is currently having her menses, will provide the pt with hygeine products. Sitter at doorway. Garage doors down, the room is secured for safety.
[2019-04-21 13:29] LABS: AMPHETAMINE SCREEN, URINE Negative (Negative); BARBITURATE SCREEN, URINE Negative (Negative); BENZODIAZEPINE SCREEN, URINE Positive (Negative); CANNABINOID SCREEN, URINE Negative (Negative); COCAINE SCREEN, URINE Negative (Negative); METHADONE SCREEN, URINE Negative (Negative); OPIATE SCREEN, URINE Negative (Negative)
--- NOTE | 2019-04-21 14:58 | NUR ---
The pt states that she has been having thoughts of suicide by hanging her self. She states that she has had these thoughts off and on since February but more so in the last few days. She is feeling "worthless because I have a hard time exercising so I can loose weight." She states that her arms and legs "feel heavy. Sitter in doorway, garage doors closed for safety.
--- NOTE | 2019-04-21 15:01 | NUR ---
The pt was provided with a "safety" lunch tray. She has fluids at bedside. The pt used the phone to make 2 calls then returned to her room. The pt ambulated to the phone, her gait is steady.
[2019-04-21] MEDS ORDERED: ESCI5TAB7 PO (15:14)
[2019-04-21 15:34] VITALS: BP 133/89
--- NOTE | 2019-04-21 16:19 | NUR ---
The Telepsych monitor is placed in the pt's room. Gave report to Dr Allen, the Telepsych psychiatrist regarding this pt. The Dr stated he will call back with his recommendation.
--- NOTE | 2019-04-21 17:00 | NUR ---
Spoke with SOC doctor, he stated that she does not meet criteria for admission or legal hold. Ivelisse Cunningham RN
--- NOTE | 2019-04-21 18:24 | NUR ---
The pt was given a "safety " meal for dinner, she is currently sitting up, eating her meal. The pt was given extra fluids.
== END 2019-04-21 18:55 | disposition home or self-care (01) ==
LOC: ED 16:49
DX: F41.1 Generalized anxiety disorder (principal); F41.0 Panic disorder [episodic paroxysmal anxiety]; F32.9 Major depressive disorder, single episode, unspecified; F99 Mental disorder, not otherwise specified; K21.9 Gastro-esophageal reflux disease without esophagitis; F17.200 Nicotine dependence, unspecified, uncomplicated; Z98.890 Other specified postprocedural states; Z72.9 Problem related to lifestyle, unspecified
CPT/HCPCS: 36415; 80053; 80307; 81025; 85025; 99284

== ENCOUNTER 2019-05-03 12:50 | Observation (INO) | payer MEDICAID ==
[~2019-05-03] VITALS: Ht 170.2 cm; Wt 112.3 kg
[~2019-05-03 12:50] MED LIST changes: +ESCI5TAB7 PO
[2019-05-03] MEDS ORDERED: SODIUM CHLORIDE FLUSH 10ML SYR IVF ONE (13:30)
[2019-05-03 13:33] LABS: BASOPHILS # (AUTO) 0.04 x10^3/uL (0-0.1); BASOPHILS % (AUTO) 0 % (0-1); EOSINOPHILS # (AUTO) 0.21 x10^3/uL (0-0.4); EOSINOPHILS % (AUTO) 1 % (1-7); LYMPHOCYTES # (AUTO) 2.36 x10^3/uL (1-3.4); LYMPHOCYTES % (AUTO) 16 % (22-44); MD NO; MEAN CORPUSCULAR HEMOGLOBIN 26.1 pg (27.0-34.8); MEAN CORPUSCULAR HGB CONC 31.7 g/dL (32.4-35.8); MEAN CORPUSCULAR VOLUME 82.3 fL (80-100); MEAN PLATELET VOLUME 7.4 fL (7.4-10.4); MONOCYTES # (AUTO) 0.83 x10^3/uL (0.2-0.8); MONOCYTES % (AUTO) 6 % (2-9); NEUTROPHILS # (AUTO) 10.93 x10^3/uL (1.8-6.8); NEUTROPHILS % (AUTO) 76 % (42-75); PLATELET COUNT 498 x10^3/uL (130-400); RED BLOOD COUNT 4.98 x10^6/uL (3.82-5.3); RED CELL DISTRIBUTION WIDTH 16.3 % (9.6-15.2)
--- NOTE | 2019-05-03 13:36 | NUR ---
PT AMBULATORY FROM LOBBY TO ROOM 39.
[2019-05-03 13:41] LABS: ALANINE AMINOTRANSFERASE 35 U/L (12-78); ALBUMIN 3.6 g/dL (3.4-5.0); ANION GAP 7 mmol/L (5-15); CHLORIDE 105 mmol/L (98-107); CREATININE 0.82 mg/dL (0.55-1.02)
[2019-05-03 13:43] LABS: ALKALINE PHOSPHATASE 123 U/L (45-117); BILIRUBIN,TOTAL 0.2 mg/dL (0.2-1.0); TOTAL PROTEIN 7.9 g/dL (6.4-8.2)
--- NOTE | 2019-05-03 13:43 | NUR ---
PT ASSISTED TO BR, URINE COLLECTED/SENT TO LAB.
[2019-05-03 14:03] LABS: MICROSCOPIC NOT IND
[2019-05-03 14:05] LABS: CULTURE INDICATED? NO
[2019-05-03 14:15] LABS: AMPHETAMINE SCREEN, URINE Negative (Negative); BARBITURATE SCREEN, URINE Negative (Negative); BENZODIAZEPINE SCREEN, URINE Positive (Negative); CANNABINOID SCREEN, URINE Negative (Negative); COCAINE SCREEN, URINE Negative (Negative)
[2019-05-03 14:16] LABS: METHADONE SCREEN, URINE Negative (Negative); OPIATE SCREEN, URINE Negative (Negative)
--- NOTE | 2019-05-03 14:30 | NUR ---
RESULTS BACK, PT FOR RECHECK.
[2019-05-03] MEDS ORDERED: MAALOX/HYOSCYAMINE/LIDOCAINE 45 ML BTL ONE (14:44)
[2019-05-03] MEDS ORDERED: PROMETHAZINE 25 MG/ML, 1ML ONE (14:44)
--- NOTE | 2019-05-03 14:50 | NUR ---
PT C/O EPIGASTRIC PAIN TO ERP. ADD ON LAB. MEDS GIVEN PER ERP ORDER.
[2019-05-03] MEDS ORDERED: MAALOX/HYOSCYAMINE/LIDOCAINE 45 ML BTL PO ONE (15:00)
[2019-05-03] MEDS ORDERED: PROMETHAZINE 25 MG/ML, 1ML IM ONE (15:00)
--- NOTE | 2019-05-03 16:20 | NUR ---
ALL RESULTS BACK, PT FOR RECHECK. VSS/UPDATED IN COMPUTER.
[2019-05-03] MEDS ORDERED: DIAZ5TAB4 PO (17:07)
--- NOTE | 2019-05-03 17:30 | NUR ---
REPORT TO AIMEE NOLAN. PT READY FOR TRANSPORT TO FLOOR.
[2019-05-03] MEDS ORDERED: DOCUSATE 100 MG CAPSULE PO PRN (19:00)
[2019-05-03] MEDS ORDERED: ENALAPRILAT 1.25 MG/ML, 2ML IVPush PRN (19:00)
[2019-05-03] MEDS ORDERED: ONDANSETRON 2MG/ML, 2ML IVPush PRN (19:00)
[2019-05-03] MEDS ORDERED: ACETAMINOPHEN 325 MG TABLET PO PRN (19:00)
[2019-05-03] MEDS ORDERED: hydrALAzine 20 MG/ML, 1ML IVPush PRN (19:00)
[2019-05-03] MEDS ORDERED: ONDANSETRON ODT 4 MG PO PRN (19:00)
[2019-05-03] MEDS ORDERED: POLYETHYLENE GLYCOL 17 GM PACKET PO PRN (19:00)
[2019-05-03] MEDS ORDERED: IBUPROFEN 600 MG TABLET PO PRN (19:00)
[2019-05-03] MEDS ORDERED: SINCALIDE (KINEVAC) 5 MCG ONE (19:22)
[2019-05-03] MEDS ORDERED: DIAZEPAM 5 MG TABLET PO PRN (19:30)
[2019-05-03] MEDS: SODIUM CHLORIDE 0.9% 1,000 ML IV SCH (20:35)
[2019-05-03] MEDS: HEPARIN 5,000 UNITS/ML, 1ML SQ SCH (20:36)
[2019-05-03 20:43] VITALS: BP 130/80
[2019-05-03] MEDS: KETOROLAC 30 MG/1 ML IV PRN (20:55)
[2019-05-03] MEDS ORDERED: FAMOTIDINE 20 MG/2 ML IVPush SCH (21:00)
[2019-05-03] MEDS: QUETIAPINE 25MG TABLET PO PRN (22:49)
[2019-05-04 01:20] VITALS: BP 118/74
[2019-05-04] MEDS: SODIUM CHLORIDE 0.9% 1,000 ML IV SCH ×2 (04:19→14:01)
[2019-05-04] MEDS: HEPARIN 5,000 UNITS/ML, 1ML SQ SCH ×3 (04:19→20:07)
[2019-05-04 05:57] LABS: MEAN CORPUSCULAR HEMOGLOBIN 25.9 pg (27.0-34.8); MEAN CORPUSCULAR HGB CONC 31.4 g/dL (32.4-35.8); MEAN CORPUSCULAR VOLUME 82.6 fL (80-100); MEAN PLATELET VOLUME 7.4 fL (7.4-10.4); PLATELET COUNT 387 x10^3/uL (130-400); RED BLOOD COUNT 4.54 x10^6/uL (3.82-5.3)
[2019-05-04 06:05] LABS: ANION GAP 4 mmol/L (5-15); CALCIUM 8.3 mg/dL (8.5-10.1); CHLORIDE 106 mmol/L (98-107); CREATININE 0.86 mg/dL (0.55-1.02)
[2019-05-04 06:27] VITALS: BP 115/79
[2019-05-04] MEDS: ESCITALOPRAM 10MG TABLET PO SCH (08:47)
[2019-05-04] MEDS: FAMOTIDINE 20 MG TABLET PO SCH ×2 (08:47→20:07)
[2019-05-04 10:16] LABS: BASOPHILS # (AUTO) 0.04 x10^3/uL (0-0.1); BASOPHILS % (AUTO) 0 % (0-1); EOSINOPHILS # (AUTO) 0.29 x10^3/uL (0-0.4); EOSINOPHILS % (AUTO) 3 % (1-7); LYMPHOCYTES # (AUTO) 2.44 x10^3/uL (1-3.4); LYMPHOCYTES % (AUTO) 26 % (22-44); MONOCYTES # (AUTO) 0.64 x10^3/uL (0.2-0.8); MONOCYTES % (AUTO) 7 % (2-9); NEUTROPHILS # (AUTO) 5.87 x10^3/uL (1.8-6.8); NEUTROPHILS % (AUTO) 63 % (42-75)
[2019-05-04] MEDS: KETOROLAC 30 MG/1 ML IV PRN (10:16)
[2019-05-04 10:17] LABS: MD SCAN
[2019-05-04 13:02] VITALS: BP 124/73
[2019-05-04] MEDS: FERROUS SULFATE 325 MG TABLET PO SCH (15:49)
[2019-05-04 19:32] VITALS: BP 121/68
[2019-05-04] MEDS: QUETIAPINE 25MG TABLET PO PRN (20:07)
[2019-05-05 01:50] VITALS: BP 99/63
[2019-05-05] MEDS: HEPARIN 5,000 UNITS/ML, 1ML SQ SCH ×2 (04:52→12:20)
[2019-05-05] MEDS: SODIUM CHLORIDE 0.9% 1,000 ML IV SCH (04:53)
[2019-05-05 06:59] LABS: BASOPHILS # (AUTO) 0.04 x10^3/uL (0-0.1); BASOPHILS % (AUTO) 1 % (0-1); EOSINOPHILS # (AUTO) 0.21 x10^3/uL (0-0.4); EOSINOPHILS % (AUTO) 2 % (1-7); LYMPHOCYTES # (AUTO) 2.06 x10^3/uL (1-3.4); LYMPHOCYTES % (AUTO) 23 % (22-44); MD NO; MEAN CORPUSCULAR HEMOGLOBIN 25.8 pg (27.0-34.8); MEAN CORPUSCULAR HGB CONC 31.5 g/dL (32.4-35.8); MEAN CORPUSCULAR VOLUME 82.1 fL (80-100); MEAN PLATELET VOLUME 7.7 fL (7.4-10.4); MONOCYTES # (AUTO) 0.47 x10^3/uL (0.2-0.8); MONOCYTES % (AUTO) 5 % (2-9); NEUTROPHILS # (AUTO) 6.31 x10^3/uL (1.8-6.8); NEUTROPHILS % (AUTO) 69 % (42-75); PLATELET COUNT 386 x10^3/uL (130-400)
[2019-05-05 07:07] LABS: ALANINE AMINOTRANSFERASE 38 U/L (12-78); ANION GAP 7 mmol/L (5-15); CALCIUM 8.3 mg/dL (8.5-10.1); CHLORIDE 110 mmol/L (98-107); CREATININE 0.96 mg/dL (0.55-1.02)
[2019-05-05 07:09] LABS: ALKALINE PHOSPHATASE 105 U/L (45-117); BILIRUBIN,TOTAL 0.2 mg/dL (0.2-1.0); TOTAL PROTEIN 6.9 g/dL (6.4-8.2)
[2019-05-05 07:45] VITALS: BP 130/86
[2019-05-05] MEDS: FERROUS SULFATE 325 MG TABLET PO SCH (08:46)
[2019-05-05] MEDS: FAMOTIDINE 20 MG TABLET PO SCH (08:47)
[2019-05-05] MEDS: ESCITALOPRAM 10MG TABLET PO SCH (08:47)
[2019-05-05] MEDS: KETOROLAC 30 MG/1 ML IV PRN (08:53)
[2019-05-05] MEDS ORDERED: FAMO20TA7 PO (13:44)
[2019-05-05 14:00] VITALS: BP 135/88
== END 2019-05-05 15:00 | disposition home or self-care (01) ==
LOC: ED 14:11 → INTOOBSV 17:00 → EDIP 17:00 → 3NE 17:47
PROVIDERS: ADMIT Family Medicine; ATTEND Family Medicine
DX: K21.9 Gastro-esophageal reflux disease without esophagitis (principal); F41.9 Anxiety disorder, unspecified; F31.9 Bipolar disorder, unspecified; D72.829 Elevated white blood cell count, unspecified; K22.70 Barrett's esophagus without dysplasia; Z79.899 Other long term (current) drug therapy; F17.210 Nicotine dependence, cigarettes, uncomplicated
CPT/HCPCS: 36415; 76700; 78227; 80048; 80053; 80307; 81003; 82607; 82728; 83540; 83550; 83690; 84443; 85025; 93005; 96372; 96374; 96376; 97162; 99284; A9537; C9898; G0378; J1644; J1885; J2550; J2805; J7030

== ENCOUNTER 2019-10-24 11:38 | Emergency (ER) | payer MEDICAID, OTHER ==
[~2019-10-24] VITALS: Ht 170.2 cm; Wt 120.0 kg
[~2019-10-24 11:38] MED LIST changes: +DIAZ5TAB4 PO; +FAMO20TA7 PO; +RANI-467 PO; -RANI150T23 PO
[2019-10-24] MEDS ORDERED: DOXE10CA PO (12:34)
[2019-10-24 12:40] LABS: BASOPHILS # (AUTO) 0.08 x10^3/uL (0-0.1); BASOPHILS % (AUTO) 1 % (0-1); EOSINOPHILS % (AUTO) 3 % (1-7); LYMPHOCYTES # (AUTO) 1.81 x10^3/uL (1-3.4); LYMPHOCYTES % (AUTO) 15 % (22-44); MD NO; MEAN CORPUSCULAR HEMOGLOBIN 26.2 pg (27.0-34.8); MEAN CORPUSCULAR HGB CONC 31.4 g/dL (32.4-35.8); MEAN CORPUSCULAR VOLUME 83.4 fL (80-100); MEAN PLATELET VOLUME 7.9 fL (7.4-10.4); MONOCYTES # (AUTO) 0.72 x10^3/uL (0.2-0.8); MONOCYTES % (AUTO) 6 % (2-9); NEUTROPHILS % (AUTO) 76 % (42-75); PLATELET COUNT 387 x10^3/uL (130-400); RED CELL DISTRIBUTION WIDTH 17.2 % (9.6-15.2)
[2019-10-24 12:49] LABS: ALBUMIN 3.3 g/dL (3.4-5.0); ANION GAP 7 mmol/L (5-15); CALCIUM 8.9 mg/dL (8.5-10.1); CHLORIDE 108 mmol/L (98-107)
[2019-10-24 12:54] LABS: ALANINE AMINOTRANSFERASE 27 U/L (12-78); ALKALINE PHOSPHATASE 129 U/L (45-117); BILIRUBIN,TOTAL 0.1 mg/dL (0.2-1.0); CREATININE 0.76 mg/dL (0.55-1.02); TOTAL PROTEIN 7.7 g/dL (6.4-8.2); TROPONIN I < 0.015 ng/mL (0.000-0.045)
[2019-10-24 14:32] VITALS: BP 127/99
== END 2019-10-24 14:34 | disposition home or self-care (01) ==
LOC: ED 14:25
DX: R07.89 Other chest pain (principal); R06.00 Dyspnea, unspecified; K21.9 Gastro-esophageal reflux disease without esophagitis; Z72.9 Problem related to lifestyle, unspecified; Z98.890 Other specified postprocedural states
CPT/HCPCS: 36415; 71046; 80053; 84484; 85025; 85379; 93005; 99284

== ENCOUNTER 2019-10-26 08:26 | Emergency (ER) | payer MEDICAID ==
[~2019-10-26] VITALS: Ht 170.2 cm; Wt 120.0 kg
[~2019-10-26 08:26] MED LIST changes: +DOXE10CA PO
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
--- NOTE | 2019-10-26 08:47 | NUR ---
URINE SPECIMAN COLLECTED, SENT TO LAB. PT PROVIDED WITH PO FLUIDS.
--- NOTE | 2019-10-26 09:07 | NUR ---
REPORT TO FLYNN NOLAN.
[2019-10-26 09:13] LABS: MEAN CORPUSCULAR HEMOGLOBIN 25.9 pg (27.0-34.8); MEAN CORPUSCULAR HGB CONC 31.7 g/dL (32.4-35.8); MEAN CORPUSCULAR VOLUME 81.5 fL (80-100); PLATELET COUNT 459 x10^3/uL (130-400); RED CELL DISTRIBUTION WIDTH 16.5 % (9.6-15.2)
[2019-10-26 09:24] LABS: ALBUMIN 3.6 g/dL (3.4-5.0); ANION GAP 12 mmol/L (5-15); CALCIUM 8.7 mg/dL (8.5-10.1); CHLORIDE 105 mmol/L (98-107); CREATININE 0.81 mg/dL (0.55-1.02); SALICYLATE LEVEL 3.9 mg/dL (2.8-20.0)
[2019-10-26 09:26] LABS: AMPHETAMINE SCREEN, URINE Negative (Negative); BARBITURATE SCREEN, URINE Negative (Negative); BENZODIAZEPINE SCREEN, URINE Negative (Negative); CANNABINOID SCREEN, URINE Negative (Negative); COCAINE SCREEN, URINE Negative (Negative); METHADONE SCREEN, URINE Negative (Negative); OPIATE SCREEN, URINE Negative (Negative)
[2019-10-26 09:30] LABS: BASOPHILS # (AUTO) 0.14 x10^3/uL (0-0.1); BASOPHILS % (AUTO) 1 % (0-1); EOSINOPHILS # (AUTO) 0.13 x10^3/uL (0-0.4); EOSINOPHILS % (AUTO) 1 % (1-7); LYMPHOCYTES % (AUTO) 11 % (22-44); MD SCAN; MONOCYTES # (AUTO) 0.58 x10^3/uL (0.2-0.8); MONOCYTES % (AUTO) 4 % (2-9); NEUTROPHILS # (AUTO) 12.42 x10^3/uL (1.8-6.8); NEUTROPHILS % (AUTO) 83 % (42-75)
[2019-10-26 10:08] VITALS: BP 139/91
--- NOTE | 2019-10-26 11:05 | NUR ---
REPORT TO Farshad NOLAN
--- NOTE | 2019-10-26 11:46 | NUR ---
REPORT RECEIVED FROM TRACEY NOLAN. PT IS IN SI SECURED ROOM IN HOSPITAL BED. SITTER IS OUTSIDE OF ROOM.
--- NOTE | 2019-10-26 13:12 | NUR ---
PT IN SI SECURED ROOM. IN HOSPITAL BED. SI FOOD TRAY WAS GIVEN. NO REQUESTS AT THIS TIME
[2019-10-26] MEDS ORDERED: MAALOX/HYOSCYAMINE/LIDOCAINE 45 ML BTL ONE (13:44)
[2019-10-26] MEDS ORDERED: MAALOX/HYOSCYAMINE/LIDOCAINE 45 ML BTL PO ONE (14:00)
[2019-10-26] MEDS ORDERED: LORazepam 1MG TABLET ONE (14:48)
[2019-10-26] MEDS ORDERED: SERTRALINE 50MG TABLET ONE (14:48)
[2019-10-26] MEDS ORDERED: SERTRALINE 50MG TABLET PO SCH (15:00)
[2019-10-26] MEDS ORDERED: DOXEPIN 10 MG CAPSULE PO PRN (15:00)
[2019-10-26] MEDS ORDERED: LORazepam 1MG TABLET PO ONE (15:00)
--- NOTE | 2019-10-26 15:30 | NUR ---
PT REFUSED DOXEPIN AFTER PACKAGE WAS OPENED. MED WAS DISCARDED. PT IS UPSET ABOUT BEING DISCHARGED. SAYS "SHES TOO TIRED TO LEAVE"
== END 2019-10-26 15:36 | disposition home or self-care (01) ==
LOC: ED 09:11
DX: R45.851 Suicidal ideations (principal); F32.9 Major depressive disorder, single episode, unspecified; K21.9 Gastro-esophageal reflux disease without esophagitis; F17.200 Nicotine dependence, unspecified, uncomplicated
CPT/HCPCS: 36415; 80048; 80307; 82040; 85025; 99284